=== PATIENT | male | born 1955 | race Caucasian/White ===

== ENCOUNTER 2020-01-09 14:56 | Emergency (ER) | payer OTHER ==
--- NOTE | 2020-01-09 16:36 | EDPHYS ---
Physician Documentation [facility] Name: Maurice Melendez Age: 64 yrs Sex: Male : 1955 Arrival Date: 01/09/2020 Time: 15:01 Bed 24 Private MD: ED Physician Alex Crockett HPI: 01/08 16:35 This 64 yrs old Male presents to ER via Ambulatory with complaints of Lumps pm1 on Skin. 16:35 Lumps/Growths on his right lower rib cage, left lower back, and sternum. Onset: The pm1 symptoms/episode began/occurred many months ago. Severity of symptoms: in the emergency department the symptoms lump to right lower rib cage is larger and causes some pain with lying down on his right side while trying to sleep. The patient has not recently seen a physician. Historical: - Allergies: 15:11 No Known Allergies; iw - Home Meds: 15:11 None [Active]; iw - PMHx: 15:11 None; iw - PSHx: 15:11 None; iw - Immunization history:: Adult Immunizations up to date. - Social history:: Smoking status: Patient reports the use of cigarette tobacco products, smokes one pack cigarettes per day. ROS: 16:35 Constitutional: Negative for fever, chills, and weight loss, Neck: Negative for injury, pm1 pain, and swelling, Cardiovascular: Negative for chest pain, palpitations, and edema, Respiratory: Negative for shortness of breath, cough, wheezing, and pleuritic chest pain, Abdomen/GI: Negative for abdominal pain, nausea, vomiting, diarrhea, and constipation, Back: Negative for injury and pain, MS/Extremity: Negative for injury and deformity. 16:35 Neuro: Negative for headache, weakness, numbness, tingling, and seizure. 16:35 Skin: Positive for lumps to skin on his right lower rib cage, sternum, and left lower back. 16:35 All other systems are negative. Exam: 16:35 Constitutional: This is a well developed, well nourished patient who is awake, alert, pm1 and in no acute distress. Head/Face: Normocephalic, atraumatic. Chest/axilla: Normal chest wall appearance and motion. Nontender with no deformity. No lesions are appreciated. Cardiovascular: Regular rate and rhythm with a normal S1 and S2. No gallops, murmurs, or rubs. Normal PMI, no JVD. No pulse deficits. Respiratory: Lungs have equal breath sounds bilaterally, clear to auscultation and percussion. No rales, rhonchi or wheezes noted. No increased work of breathing, no retractions or nasal flaring. Abdomen/GI: Soft, non-tender, with normal bowel sounds. No distension or tympany. No guarding or rebound. No evidence of tenderness throughout. Back: No spinal tenderness. No costovertebral tenderness. Full range of motion. 16:35 Skin: Appearance: normal except for affected area, soft, fluctuant mass with free mobility from the skin that has slippage sign. Vital Signs: 15:09 BP 163 / 82; Pulse 91; Resp 16; Temp 98.2; Pulse Ox 100% on R/A; Pain 10/10; iw MDM: 16:20 Patient medically screened. pm1 16:35 Data reviewed: vital signs. Data interpreted: Pulse oximetry: on room air is 100 %. pm1 Interpretation: normal. Counseling: I had a detailed discussion with the patient and/or guardian regarding: the historical points, exam findings, and any diagnostic results supporting the discharge/admit diagnosis, the need for outpatient follow up, for definitive care, a general surgeon, to return to the emergency department if symptoms worsen or persist or if there are any questions or concerns that arise at home. Administered Medications: No medications were administered Disposition: 18:22 Co-signature as Attending Physician, Alex Crockett MD I agree with the assessment and carlene plan of care. Disposition: 01/09/20 16:36 Discharged to Home. Impression: Lipomatosis, not elsewhere classified. - Condition is Stable. - Discharge Instructions: Lipoma. - Prescriptions for Diclofenac Sodium 75 mg Oral Tablet, Delayed Release (E.C.) - take 1 tablet by ORAL route 2 times per day As needed; 30 tablet. - Medication Reconciliation Form, Thank You Letter, Antibiotic Education, Prescription Opioid Use form. - Follow up: Emergency Department; When: As needed; Reason: Worsening of condition. Follow up: Private Physician; When: 2 - 3 days; Reason: Recheck today's complaints, Continuance of care, Re-evaluation by your physician. - Problem is new. - Symptoms have improved. Signatures: Martha Tony RN RN aj1 Alex Crockett MD MD cha Williams, Irene, RN Oc Desouza, RISK ENGINEER RISK ENGINEER pm1 Corrections: (The following items were deleted from the chart) 17:00 16:36 01/09/2020 16:36 Discharged to Home. Impression: Lipomatosis, not elsewhere aj1 classified. Condition is Stable. Forms are Medication Reconciliation Form, Thank You Letter, Antibiotic Education, Prescription Opioid Use. Follow up: Emergency Department; When: As needed; Reason: Worsening of condition. Follow up: Private Physician; When: 2 - 3 days; Reason: Recheck today's complaints, Continuance of care, Re-evaluation by your physician. Problem is new. Symptoms have improved. pm1
--- NOTE | 2020-01-09 16:36 | ER ---
Nurse's Notes [facility] Name: Maurice Melendez Age: 64 yrs Sex: Male : 1955 Arrival Date: 01/09/2020 Time: 15:01 Bed 24 Private MD: Diagnosis: Lipomatosis, not elsewhere classified Presentation: 01/08 15:09 Chief complaint: Patient states: pain to right ribcage for a few weeks, also has large iw knot in right chest area since then is very painful. Coronavirus screen: The patient has NOT traveled to [place] in the past 14 days. Proceed with normal triage procedures. Ebola Screen: Patient negative for fever greater than or equal to 101.5 degrees Fahrenheit, and additional compatible Ebola Virus Disease symptoms Patient denies exposure to infectious person. Patient denies travel to an Ebola-affected area in the 21 days before illness onset. No symptoms or risks identified at this time. Initial Sepsis Screen: Does the patient meet any 2 criteria? No. Patient's initial sepsis screen is negative. Does the patient have a suspected source of infection? No. Patient's initial sepsis screen is negative. Risk Assessment: Do you want to hurt yourself or someone else? Patient reports no desire to harm self or others. 15:09 Method Of Arrival: Ambulatory iw 15:09 Acuity: DOUG 4 iw Historical: - Allergies: 15:11 No Known Allergies; iw - Home Meds: 15:11 None [Active]; iw - PMHx: 15:11 None; iw - PSHx: 15:11 None; iw - Immunization history:: Adult Immunizations up to date. - Social history:: Smoking status: Patient reports the use of cigarette tobacco products, smokes one pack cigarettes per day. Screenin:59 Abuse screen: Denies threats or abuse. Denies injuries from another. Nutritional aj1 screening: No deficits noted. Tuberculosis screening: No symptoms or risk factors identified. Assessment: 16:59 General: Appears in no apparent distress. comfortable, Behavior is calm, cooperative, aj1 appropriate for age. Pain: Complains of pain in diaphragm. Neuro: Level of Consciousness is awake, alert, obeys commands, Oriented to person, place, time, situation. Cardiovascular: Patient's skin is warm and dry. Respiratory: Airway is patent Respiratory effort is even, unlabored, Respiratory pattern is regular, symmetrical. GI: Abdomen is flat, non-distended, Bowel sounds present X 4 quads. Abd is soft and non tender X 4 quads. : No signs and/or symptoms were reported regarding the genitourinary system. EENT: No signs and/or symptoms were reported regarding the EENT system. Derm: Skin is pink, warm \T\ dry. normal. Musculoskeletal: Circulation, motion, and sensation intact. Vital Signs: 15:09 BP 163 / 82; Pulse 91; Resp 16; Temp 98.2; Pulse Ox 100% on R/A; Pain 10/10; iw ED Course: 15:01 Patient arrived in ED. as 15:11 Triage completed. iw 15:11 Arm band placed on. iw 16:09 Oc Martin NP is PHCP. pm1 16:09 Alex Crockett MD is Attending Physician. pm1 16:58 Martha Tony, RN is Primary Nurse. aj1 16:59 Patient has correct armband on for positive identification. Bed in low position. Call aj1 light in reach. Side rails up X 1. 16:59 No provider procedures requiring assistance completed. aj1 17:00 Patient did not have IV access during this emergency room visit. aj1 Administered Medications: No medications were administered Outcome: 16:36 Discharge ordered by . pm1 16:59 Discharged to home ambulatory. aj1 16:59 Condition: good 16:59 Discharge instructions given to patient, Instructed on discharge instructions, follow up and referral plans. medication usage, Demonstrated understanding of instructions, follow-up care, medications, Prescriptions given X 1. 17:00 Patient left the ED. aj1 Signatures: Martha Tony, RN RN aj1 Kaitlin Rodríguez Irene, RN RN Oc Martin NP TRUCK RENTAL MANAGER pm1
[2020-01-09 17:42] VITALS: BP 163/82; O2SAT 100
[2020-01-09 17:43] VITALS: TEMP 97.7
== END 2020-01-09 17:00 | disposition home or self-care (01) ==
LOC: ER 14:56
DX: E88.2 Lipomatosis, not elsewhere classified (principal)
CPT/HCPCS: 99282

== ENCOUNTER 2020-01-27 12:04 | Inpatient (IN) | payer OTHER ==
[2020-01-27] MEDS ORDERED: LIDOCAINE 1% MPF 5 ML VIAL ONE (12:41)
--- NOTE | 2020-01-27 13:48 | RAD REPORT ---
EXAM DESCRIPTION: US - Abdomen Exam Limited - 01/27/2020 1:35 pm CLINICAL HISTORY: evaluate abscess Pain and swelling COMPARISON: No comparisons FINDINGS: Large complex heterogenous collection is seen in the interest in the right upper quadrant measuring approximately 9 x 8 cm extending approximately 9 cm deep from the skin surface, likely repr esenting an abscess.
[2020-01-27 14:19] LABS: Absolute Lymphocytes (CBC) 1.5 K/uL (0.7-4.9); Basophils % 0.7 % (0-1.3); Lymphocytes % 15.4 % (15.3-44.8); MPV 7.5 fL (7.6-11.3); RBC Red Blood Cell Count 4.03 M/uL (4.33-5.43)
[2020-01-27 14:23] LABS: Protime INR 1.18
[2020-01-27 14:29] LABS: BUN Blood Urea Nitrogen 23 mg/dL (7-18); Bicarbonate 28 mmol/L (21-32); Glucose Level 97 mg/dL (74-106); Potassium 3.7 mmol/L (3.5-5.1); Sodium Level 138 mmol/L (136-145)
--- NOTE | 2020-01-27 14:47 | ER ---
Nurse's Notes [facility] Name: Maurice Melendez Age: 64 yrs Sex: Male : 1955 Arrival Date: 01/27/2020 Time: 12:12 Bed 18 Private MD: Diagnosis: Cutaneous abscess of abdominal wall Presentation: 01/26 12:12 Chief complaint: EMS states: they were toned for pain from sight side chest mass with wh discharge. Pt denies fever. Pt states abscess has been there for unknown time. Coronavirus screen: The patient has NOT traveled to a country currently being monitored by the [facility] within the last 14 days. Ebola Screen: Patient negative for fever greater than or equal to 101.5 degrees Fahrenheit, and additional compatible Ebola Virus Disease symptoms Patient denies exposure to infectious person. Initial Sepsis Screen: Does the patient meet any 2 criteria? HR > 90 bpm. Does the patient have a suspected source of infection? Yes: Skin breakdown/wound. Risk Assessment: Do you want to hurt yourself or someone else? Patient reports no desire to harm self or others. 12:12 Method Of Arrival: EMS: [facility] 12:12 Acuity: DOUG 4 12:17 Onset of symptoms is unknown. Historical: - Allergies: 12:15 No Known Allergies; - Home Meds: 12:15 Unable to obtain [Active]; - PMHx: 12:15 Alzheimers; - Immunization history:: Adult Immunizations not up to date. - Social history:: Smoking status: Patient reports the use of cigarette tobacco products. Screenin:17 Abuse screen: Denies threats or abuse. Denies injuries from another. Nutritional screening: No deficits noted. Tuberculosis screening: No symptoms or risk factors identified. Fall Risk None identified. Assessment: 12:15 General: Appears in no apparent distress. unkempt, Behavior is calm, cooperative. Pain: Complains of pain in right lateral anterior chest Quality of pain is described as aching, Pain began unknown. Neuro: Level of Consciousness is awake, alert, obeys commands, Oriented to person, place, time. Cardiovascular: Capillary refill < 3 seconds. Respiratory: Airway is patent Respiratory effort is even, unlabored, Respiratory pattern is regular, symmetrical. GI: Abdomen is flat, non-distended. : No signs and/or symptoms were reported regarding the genitourinary system. EENT: No signs and/or symptoms were reported regarding the EENT system. Derm: Abscess located on right lateral anterior chest Reports pain. Musculoskeletal: Circulation, motion, and sensation intact. 13:10 Reassessment: Patient appears in no apparent distress at this time. No changes from previously documented assessment. Patient and/or family updated on plan of care and expected duration. Pain level reassessed. Patient is alert, oriented x 3, equal unlabored respirations, skin warm/dry/pink. 15:15 Reassessment: Patient appears in no apparent distress at this time. No changes from previously documented assessment. Patient and/or family updated on plan of care and expected duration. Pain level reassessed. Patient is alert, oriented x 3, equal unlabored respirations, skin warm/dry/pink. MD at bedside explaining POC need for admit. 16:50 Reassessment: Patient appears in no apparent distress at this time. No changes from previously documented assessment. Patient and/or family updated on plan of care and expected duration. Pain level reassessed. Patient is alert, oriented x 3, equal unlabored respirations, skin warm/dry/pink. Vital Signs: 12:12 BP 124 / 69; Pulse 98; Resp 18; Temp 97; Pulse Ox 98% ; Weight 63.5 kg; Height 5 ft. 10 wh in. (177.80 cm); Pain 4/10; 13:30 BP 135 / 65; Pulse 76; Resp 18; Pulse Ox 99% on R/A; wh 15:00 BP 138 / 58; Pulse 73; Resp 18; Pulse Ox 98% ; wh 16:30 BP 120 / 58; Pulse 67; Resp 18; Pulse Ox 100% ; wh 12:12 Body Mass Index 20.09 (63.50 kg, 177.80 cm) ED Course: 12:12 Patient arrived in ED. 12:12 Sonia Hall FNP-C is [facility]. kb 12:12 Barry Ibrahim MD is Attending Physician. kb 12:14 Triage completed. wh 12:17 Arm band placed on right wrist. 12:18 Patient has correct armband on for positive identification. Placed in gown. Bed in low wh position. Call light in reach. Side rails up X 1. Pulse ox on. NIBP on. 12:28 Laura Moore is Primary Nurse. 13:35 US Abdomen Limited In Process Unspecified. EDMS 14:07 Initial lab(s) drawn, by me, sent to lab. Inserted saline lock: 20 gauge in right dh3 forearm, using aseptic technique. Blood collected. 14:46 Yeni Slaughter MD is Hospitalizing Provider. kb 14:56 Albert Merchant DO is Hospitalizing Provider. kb 16:52 No provider procedures requiring assistance completed. Patient admitted, IV remains in place. Administered Medications: 13:54 CANCELLED (Physician Discretion): Lidocaine (1 %) 1 vials 5 ml Infiltration once; to bedside 14:51 Drug: Clindamycin 600 mg Route: IVPB; Infused Over: 30 mins; Site: right forearm; 16:53 Follow up: Response: No adverse reaction; IV Status: Completed infusion Outcome: 14:47 Decision to Hospitalize by Provider. kb 16:59 Admitted to Med/surg accompanied by tech, via wheelchair, room 204, with chart, Report called to Fanny LE 16:59 Condition: stable 16:59 Instructed on the need for admit. 17:14 Patient left the ED. Signatures: Dispatcher [employer] EDNJ Sonia Hall, [facility] Laura Moore Corrections: (The following items were deleted from the chart) 12:17 12:15 General: Appears in no apparent distress. Behavior is calm, cooperative, appropriate for age, 16:51 15:14 Reassessment: MD at bedside explaining POC need for admit [facility]
--- NOTE | 2020-01-27 14:47 | EDPHYS ---
Physician Documentation [facility] Name: Maurice Melendez Age: 64 yrs Sex: Male : 1955 Arrival Date: 01/27/2020 Time: 12:12 Bed 18 Private MD: ED Physician Barry Ibrahim HPI: 01/26 14:03 This 64 yrs old Male presents to ER via EMS with complaints of Abscess. kb 14:03 The patient presents with an abscess of the right upper quadrant. Description: kb erythematous, fluctuant, swollen. Onset: The symptoms/episode began/occurred "a few months ago". Possible cause(s): unknown. Associated signs and symptoms: Pertinent positives: drainage, erythema, swelling, Pertinent negatives: foreign body sensation, fever, headache, nausea, shortness of breath, vomiting. Modifying factors: the symptoms are alleviated by nothing, the symptoms are aggravated by pressure, touching. Severity of symptoms: At their worst the symptoms were moderate, in the emergency department the symptoms are unchanged. The patient has not experienced similar symptoms in the past. The patient has not recently seen a physician. Historical: - Allergies: 12:15 No Known Allergies; - Home Meds: 12:15 Unable to obtain [Active]; - PMHx: 12:15 Alzheimers; - Immunization history:: Adult Immunizations not up to date. - Social history:: Smoking status: Patient reports the use of cigarette tobacco products. ROS: 13:56 Constitutional: Negative for fever, chills, and weight loss, Cardiovascular: Negative kb for chest pain, palpitations, and edema, Respiratory: Negative for shortness of breath, cough, wheezing, and pleuritic chest pain, Abdomen/GI: Negative for abdominal pain, nausea, vomiting, diarrhea, and constipation, Back: Negative for injury and pain, MS/Extremity: Negative for injury and deformity, Neuro: Negative for headache, weakness, numbness, tingling, and seizure. 13:56 Skin: Positive for abscess, of the right upper quadrant. Exam: 14:01 Constitutional: This is a well developed, well nourished patient who is awake, alert, kb and in no acute distress. Head/Face: Normocephalic, atraumatic. Neck: Trachea midline, no thyromegaly or masses palpated, and no cervical lymphadenopathy. Supple, full range of motion without nuchal rigidity, or vertebral point tenderness. No Meningismus. Chest/axilla: Normal chest wall appearance and motion. Nontender with no deformity. No lesions are appreciated. Cardiovascular: Regular rate and rhythm with a normal S1 and S2. No gallops, murmurs, or rubs. Normal PMI, no JVD. No pulse deficits. Respiratory: Lungs have equal breath sounds bilaterally, clear to auscultation and percussion. No rales, rhonchi or wheezes noted. No increased work of breathing, no retractions or nasal flaring. Abdomen/GI: Soft, non-tender, with normal bowel sounds. No distension or tympany. No guarding or rebound. No evidence of tenderness throughout. Back: No spinal tenderness. No costovertebral tenderness. Full range of motion. MS/ Extremity: Pulses equal, no cyanosis. Neurovascular intact. Full, normal range of motion. Neuro: Awake and alert, GCS 15, oriented to person, place, time, and situation. Cranial nerves II-XII grossly intact. Motor strength 5/5 in all extremities. Sensory grossly intact. Cerebellar exam normal. Normal gait. 14:01 Skin: abscess, that is large, of the right upper quadrant, with fluctuance, that is marked. Vital Signs: 12:12 BP 124 / 69; Pulse 98; Resp 18; Temp 97; Pulse Ox 98% ; Weight 63.5 kg; Height 5 ft. 10 wh in. (177.80 cm); Pain 4/10; 13:30 BP 135 / 65; Pulse 76; Resp 18; Pulse Ox 99% on R/A; wh 15:00 BP 138 / 58; Pulse 73; Resp 18; Pulse Ox 98% ; wh 16:30 BP 120 / 58; Pulse 67; Resp 18; Pulse Ox 100% ; wh 12:12 Body Mass Index 20.09 (63.50 kg, 177.80 cm) MDM: 12:13 Patient medically screened. kb 13:55 Data reviewed: vital signs, nurses notes. Data interpreted: Pulse oximetry: on room air kb is 98 %. Interpretation: normal. Counseling: I had a detailed discussion with the patient and/or guardian regarding: the historical points, exam findings, and any diagnostic results supporting the discharge/admit diagnosis, radiology results, the need for further work-up and treatment in the hospital. 14:44 Physician consultation: Jc Rodríguez MD was contacted at 14:44, regarding consult, patient's condition, and will see patient in inpatient room. 14:44 Physician consultation: Yeni Slaughter MD was contacted at 14:45, regarding admission, to the medical/surgical unit. patient's condition, and will see patient in ED, shortly. 01/26 12:24 Order name: Wound Culture 01/26 13:54 Order name: CBC with Diff; Complete Time: 14:34 01/26 13:05 Order name: US Abdomen Limited; Complete Time: 13:52 01/26 13:54 Order name: Basic Metabolic Panel; Complete Time: 14:31 01/26 13:54 Order name: Protime (+inr); Complete Time: 14:31 01/26 13:54 Order name: Ptt, Activated; Complete Time: 14:31 01/26 12:24 Order name: I\\T\\D Setup; Complete Time: 12:40 01/26 13:54 Order name: IV Start; Complete Time: 13:58 01/26 15:30 Order name: Chest Abd Pelvis Wo Con; Complete Time: 16:06 EDMS Administered Medications: 13:54 CANCELLED (Physician Discretion): Lidocaine (1 %) 1 vials 5 ml Infiltration once; to bedside 14:51 Drug: Clindamycin 600 mg Route: IVPB; Infused Over: 30 mins; Site: right forearm; 16:53 Follow up: Response: No adverse reaction; IV Status: Completed infusion Disposition: 18:34 Co-signature as Attending Physician, Barry Ibrahim MD Signature for administrative ps1 purposes. Did not see or evaluate patient. . Disposition: 01/27/20 14:47 Hospitalization ordered by Albert Merchant for Observation. Preliminary diagnosis is Cutaneous abscess of abdominal wall. - Bed requested for Telemetry/MedSurg (observation). - Status is Observation. - Condition is Stable. - Problem is new. - Symptoms are unchanged. Signatures: Dispatcher [employer] EDMS Sonia Hall, Jeffrey Christie em1 Teresa, Laura Barry Ibrahim MD MD ps1 Corrections: (The following items were deleted from the chart) 13:54 12:24 Lidocaine (1 %) 1 vials 5 ml Infiltration once; to bedside ordered. kb kb 13:54 13:54 Lidocaine (1 %) 1 vials 5 ml Infiltration once; to bedside ordered. kb kb 14:56 14:47 Hospitalization Ordered by Yeni Slaughter MD for Observation. Preliminary diagnosis kb is Cutaneous abscess of abdominal wall. Bed requested for Telemetry/MedSurg (observation). Status is Observation. Condition is Stable. Problem is new. Symptoms are unchanged. kb 15:54 14:56 01/27/2020 14:47 Hospitalization Ordered by Albert Merchant DO for Observation. em1 Preliminary diagnosis is Cutaneous abscess of abdominal wall. Bed requested for Telemetry/MedSurg (observation). Status is Observation. Condition is Stable. Problem is new. Symptoms are unchanged. kb 17:14 15:54 01/27/2020 14:47 Hospitalization Ordered by Albert Merchant DO for Observation. wh Preliminary diagnosis is Cutaneous abscess of abdominal wall. Bed requested for Telemetry/MedSurg (observation). Status is Observation. Condition is Stable. Problem is new. Symptoms are unchanged. em1
[2020-01-27] MEDS ORDERED: CLINDAMYCIN 600MG/D5W 600 MG/50 ML BAG IV ONE (14:50)
--- NOTE | 2020-01-27 16:01 | RAD REPORT ---
EXAM DESCRIPTION: CT - Chest Abd Pelvis Wo Con - 01/27/2020 3:48 pm CLINICAL HISTORY: Chest and abdomen pain. Abscess evaluation COMPARISON: Abdomen Exam Limited dated 01/27/2020 TECHNIQUE: A limited noncontrast study was performed. All CT scans are performed using dose optimization technique as appropriate and may include automated exposure control or mA/KV adjustment according to patient size. FINDINGS: Mild diffuse COPD is present.Atelectasis is identified in the right lung base.No pleural o r pericardial effusion.No intrathoracic adenopathy. Multiloculated thick-walled cystic collection is seen along the right upper quadrant subcutaneous tis sues. The component within the subcutaneous tissues measures 8 x 4 cm. The collection is seen to exte nd between the seventh and eighth intercostal space into the abdominal cavity or the component measur es 9 x 3 cm in the demonstrates mild mass effect on the right lobe of the liver. Noncontrast assessment of the liver, pancreas, adrenal glands and kidneys is within normal limits. Sp antwan is mildly enlarged. No bowel obstruction, free air, or intra-abdominal free fluid. The appendix is not identified as a di screte structure, however, no secondary findings of appendicitis are identified. No pathologic lymp hadenopathy in the abdomen or pelvis. No worrisome osseous finding. IMPRESSION: Multiloculated, thick-walled fluid collection in the right upper quadrant subcutaneous t issues with extension into the abdomen anterior to the right lobe of the liver.This complex, thick wa lled, multilocular collection would not be amenable to percutaneous drainage.
--- NOTE | 2020-01-27 16:06 | P.HP ---
Certification for Inpatient Patient admitted to: Observation With expected LOS: <2 Midnights Patient will require the following post-hospital care: Home Health Services Practitioner: I am a practitioner with admitting privileges, knowledge of patient current condition, hospital course, and medical plan of care. Services: Services provided to patient in accordance with Admission requirements found in Title 42 Section 412.3 of the Code of Federal Regulations Patient History Date of Service: 01/27/20 Primary Care Provider: none Reason for admission: Right upper quadrant superficial abscess History of Present Illness: 64 YO male presents to ED with complaint of abdominal pain and swelling to the right upper quadrant. Pt is unable ot quantify how long he has had this problem but states it could have been there "for a couple months". was concerned and called EMS to have him evaluated. Pt denies any fever, chills, or signs of systemic infection. In ED pt does not appear septic, VSS, WBC WNL, US shows large RUQ abdominal wall abscess, ED discussed case with sx. ED plans surgical debridement, hospitalist called for admission, surgery to consult. When I saw the patient in the ER he appeared stable, non-septic. Appears malnourished with poor hygiene. Concern for in home conditions and adequate social support. Home medications list reviewed: No (Pt states not taking home medications) - Past Medical/Surgical History Diabetic: No Past Medical History: Patient denies medical history Past Surgical History: Patient denies surgical history Psychosocial/ Personal History: Pt is , lives at home with and son. Suspect poor social/home situation. - Social History Smoking Status: Current every day smoker Counseled patient to stop smoking for: less than 10 minutes Review of Systems General: Unremarkable Respiratory: Unremarkable Cardiovascular: Unremarkable Gastrointestinal: Abdominal Pain Genitourinary: Incontinence, Retention Musculoskeletal: Atrophy Integumentary: As per HPI Neurological: As per HPI (Pt states hx of alzheimers ) Lymphatics: Unremarkable Physical Examination - Physical Exam General: Alert, In no apparent distress, Cooperative, Cachectic, Disheveled HEENT: Atraumatic, Normocephalic Neck: JVD not distended, No Thyromegaly Respiratory: Clear to auscultation bilaterally Cardiovascular: No edema, Normal S1 S2 Gastrointestinal: Normal bowel sounds, No ascites, Other (Large abscess with fluctuance, with some erythema and pain to palpation to RUQ. Abscess wsa approximately [id number]) Musculoskeletal: No swelling Integumentary: Tenderness/swelling, Erythema, Warmth, Other (as stated above) Neurological: Normal speech, Normal strength at 5/5 x4 extr, Normal tone Lymphatics: No axilla or inguinal lymphadenopathy (Pt incontinent of urine) - Studies Laboratory Data (last 24 hrs) 01/27/20 14:07: PT 13.9 H, INR 1.18, APTT 27.9 01/27/20 14:07: Sodium 138, Potassium 3.7, BUN 23 H, Creatinine 0.78, Glucose 97 01/27/20 14:07: WBC 9.5, Hgb 11.5 L, Hct 35.0 L, Plt Count 298 Assessment and Plan - Plan Impression Right upper quadrant abdominal wall abscess 9x8cm in size Moderate protein malnutrition Dehydration Suspect poor social situation Plan Right upper quadrant abdominal wall abscess 9x8cm in size: Patient will be admitted and started on antibiotic therapy, medications for pain, NPO after midnight, DVT prophylaxis provided. ER spoke to surgery who will see the patient in the morning. Anticipate surgery tomorrow, possible discharge in the next 24-48 hours pending surgical treatment and clearance. Moderate protein malnutrition: Will provide IV fluids, will consider dietary evaluation, monitor intake. Dehydration: As above Suspect poor social situation: Consult social work to further investigate, pt will likely require home health. Discharge Plan: Home Plan to discharge in: 48 Hours - Advance Directives Does patient have a Living Will: No Does patient have a Durable POA for Healthcare: No - Code Status/Comfort Care Code Status Assessed: Yes (Advanced directives addressed pt is full code) Time Spent Managing Pts Care (In Minutes): 55
[2020-01-27] MEDS ORDERED: ONDANSETRON 4 MG/2 ML VIAL IV PRN (17:51)
[2020-01-27 18:35] LABS: Absolute Lymphocytes (CBC) 1.2 K/uL (0.7-4.9); Basophils % 0.7 % (0-1.3); Hematocrit 36.1 % (39.6-49.0); Lymphocytes % 12.8 % (15.3-44.8); MPV 7.4 fL (7.6-11.3)
[2020-01-27 18:53] LABS: Magnesium 2.5 mg/dL (1.8-2.4); Potassium 3.4 mmol/L (3.5-5.1)
[2020-01-27 18:57] VITALS: BMI 15.3
[2020-01-27] MEDS: NA CHLORIDE 0.9% 1,000 ML IV SCH (19:57)
[2020-01-27] MEDS: ENOXAPARIN 40 MG/0.4 ML SQ SCH (19:58)
[2020-01-27] MEDS: HYDROCODONE/APAP 7.5/325 MG TAB PO PRN (20:01)
[2020-01-27] MEDS ORDERED: POTASSIUM CL SA 10 MEQ TAB PO ONE (20:30)
--- NOTE | 2020-01-27 21:16 | CON ---
Date of Consultation: 01/27/2020 Diagnosis: Abdomen and chest cellulitis and abscess. History Of Present Illness: This is a case of a 64-year-old patient, comes today to the ER with swel ling in the right upper quadrant and lower rib cage area. Patient diagnosed with a cellulitis in gabbie t area. Workup has been done to rule out abscess. He cannot give any information. He does not amari mber. He states it has been there for only few days. More than that he is not giving us much inform ation about the etiology of that. He does not remember even if he had a mass there before. He looks , at least appears malnourished. I agree with the primary doctor. Past Medical History: None. Past Surgical History: None. He does not remember any surgery. Social History: He smokes, he does not remember how many a day. The patient once again advised abou t stopping smoking. Family History: Noncontributory. Review of Systems: 10 points otherwise unremarkable. Physical Examination: General: Patient is awake and alert. HEENT: Pupils are equal, reactive. Neck: Supple. Chest: Clear. Over the lower chest and upper abdomen right lower quadrant, patient has an area of f luctuance. Apparently, the patient has an abscess in that area with some tissue that will need to be debrided. Abdomen: Soft and depressible with no peritonitis. Rectal: Deferred. Genitalia: Deferred. Extremities: Good capillary refill. Laboratory Data: Blood work shows WBC count of 9.2 with hemoglobin of 11.8 and platelets of 290. IN R is 1.18, potassium 3.4, BUN is 22. Abdominal ultrasound shows a large complex in the right upper q uadrant, a density, could represent an abscess. CAT scan interpreted by Dr. Sherman with similar findin gs. When the CAT scan was also reviewed, it shows infection in that area, but there is a mass effect also in the right upper quadrant, in the right upper lobe of the liver. The etiology of that is unk nown. Radiology explained that it cannot not be amenable to percutaneous drainage. Assessment: A 64-year-old patient with an abdominal wall abscess. The radiologist believed it could be going through ribs and then going intra-abdominally. The etiology of that is unknown. It is a m ass effect in that area. So from the surgical standpoint, definitely the abdominal wall abscess have to be drained. We might need to also do a diagnostic laparoscopy, put the camera inside and see if the abscess involved the anterior abdominal wall, why, and at the time if we find an abscess, we migh t have to drain that area and also most likely could drain since the radiologist claimed they cannot do it. The benefits and risk of intraabdominal abscess and abdominal wall abscess fully explained to the patient, with diagnostic laparoscopy, which include but not limited to infection, bleeding, angela ge to adjacent structures, anesthesia complication, nonhealing wound, VA, and even . He also un derstands this may not relieve his symptoms. He might need more than one surgical intervention. He understood. He is eating at this moment. He is comfortable, but still this abscess at least what we see in the abdominal wall is consistent with the infectious mass, I am not sure of the area next to the liver. JOON/JALEN Voice ID: [id number] Report ID: [id number]
[2020-01-28] MEDS: CLINDAMYCIN INJ 600 MG in NA CHLORIDE 0.9% 50 ML IV SCH ×3 (00:33→16:13)
[2020-01-28 03:42] LABS: Urine Appearance CLEAR; Urine Blood NEGATIVE (NEG); Urine Color DK YELLOW; Urine Glucose NEGATIVE (NEG); Urine Protein TRACE (NEG); Urine Specific Gravity >=1.030 (1.005-1.030)
[2020-01-28 03:58] LABS: Urine Bilirubin NEGATIVE (NEG)
[2020-01-28 04:09] LABS: Urine Microscopic Reflex ORDER UMIC
[2020-01-28 04:10] LABS: Urine Bacteria <20 /HPF (NONE SEEN); Urine Culture Reflex Order NOT NEEDED; Urine Mucus 2+ /HPF (NONE SEEN)
[2020-01-28 04:27] LABS: BUN Blood Urea Nitrogen 25 mg/dL (7-18); Bicarbonate 29 mmol/L (21-32); Glucose Level 94 mg/dL (74-106); Potassium 4.2 mmol/L (3.5-5.1); Sodium Level 143 mmol/L (136-145)
[2020-01-28] MEDS: NA CHLORIDE 0.9% 1,000 ML IV SCH ×3 (05:57→20:16)
--- NOTE | 2020-01-28 08:50 | P.PN ---
Subjective Date of Service: 01/28/20 Primary Care Provider: none Chief Complaint: Right upper quadrant superficial abscess Subjective: Doing well Physical Examination - Vital Signs Temperature: 97.8 F Blood Pressure: 100/61 Pulse: 80 Respirations: 20 Pulse Ox (%): 98 - Physical Exam General: Alert, In no apparent distress, Cooperative, Cachectic, Disheveled HEENT: Atraumatic Neck: Supple Respiratory: Clear to auscultation bilaterally, Normal air movement Cardiovascular: Normal pulses, Regular rate/rhythm Gastrointestinal: Normal bowel sounds, Other (Abdominal abscess remains stable. Erythema and fluctuance noted.) Neurological: Normal speech, Normal strength at 5/5 x4 extr, Normal tone, Normal affect - Studies Laboratory Data (last 24 hrs) 01/28/20 04:03: Sodium 143, Potassium 4.2, BUN 25 H, Creatinine 0.76, Glucose 94 01/27/20 18:08: Sodium 140, Potassium 3.4 L, BUN 22 H, Creatinine 0.87, Glucose 104, Magnesium 2.5 H 01/27/20 18:08: WBC 9.2, Hgb 11.8 L, Hct 36.1 L, Plt Count 290 01/27/20 14:07: PT 13.9 H, INR 1.18, APTT 27.9 01/27/20 14:07: Sodium 138, Potassium 3.7, BUN 23 H, Creatinine 0.78, Glucose 97 01/27/20 14:07: WBC 9.5, Hgb 11.5 L, Hct 35.0 L, Plt Count 298 Microbiology Data (last 24 hrs): 01/27/20 18:08 Blood - Blood Anaerobic Blood Culture - Final Medications List Reviewed: Yes Assessment & Plan Discharge Plan: Home Plan to discharge in: 48 Hours Physician Review Additional Text: Impression: Right upper quadrant abdominal wall abscess 9x8cm in size Moderate protein malnutrition Dehydration Suspect poor social situation Dementia Plan Right upper quadrant abdominal wall abscess 9x8cm in size: Case discussed with surgery yesterday. Patient will have surgery today. Await surgery findings and recommendations. Continue IV fluids and nutrition. Anticipate discharge in the next 24-48 hr pending surgical finding and recommendation. Moderate protein malnutrition: Will provide IV fluids, will add oral supplementation. Dehydration: As above Suspect poor social situation: Consult social work to further investigate, pt will likely require home health. Dementia: Patient reports dementia. Patient is appropriate. Follows commands. Will need to get more information from family. Time Spent Managing Pts Care (In Minutes): 55
[2020-01-28] MEDS: ENOXAPARIN 40 MG/0.4 ML SQ SCH (09:00)
[2020-01-28] MEDS: ENSURE HIGH PROTEIN 237 ML CAN PO SCH ×2 (09:34→15:13)
[2020-01-28] MEDS ORDERED: Ringers Lactate 1,000 ML IV ONE (11:06)
[2020-01-28] MEDS ORDERED: ROCURONIUM 50 MG/5 ML VIAL IV ONE (11:36)
[2020-01-28] MEDS ORDERED: propofoL 200 MG/20 ML VIAL IV ONE (11:36)
[2020-01-28] MEDS ORDERED: MIDAZOLAM HCL 2 MG/2 ML INJ ONE (11:36)
[2020-01-28] MEDS ORDERED: FENTANYL CITR 250 MCG/5 ML ONE (11:36)
[2020-01-28] MEDS ORDERED: LIDOCAINE 2% MPF 5 ML VIAL ONE (11:36)
[2020-01-28] MEDS ORDERED: dexAMETHasone 10 MG/ML VIAL ONE (11:36)
[2020-01-28] MEDS ORDERED: GLYCOPYRROLATE 0.2 MG/ML SYR ONE ×2 (12:49→13:14)
[2020-01-28] MEDS ORDERED: KETOROLAC 30 MG/ML INJ ONE (13:13)
[2020-01-28] MEDS ORDERED: NEOSTIGMINE 1 MG/ML -5 ML ONE (13:15)
[2020-01-28] MEDS: HYDROMORPHONE HCL 1 MG/ML INJ ONE ×2 (13:34→13:39)
[2020-01-28] MEDS ORDERED: ONDANSETRON 4 MG/2 ML VIAL ONE (13:37)
--- NOTE | 2020-01-28 14:06 | P.BOP ---
Preoperative diagnosis: intrabdominal abscess and abd wall complex abscess Postoperative diagnosis: same Primary procedure: incision and drainage of intrabdominal and abd wall complex abscess with Secondary procedure: excisional debridemet of necrotic tissue Estimated blood loss: <50cc Specimen: pus Findings: see dictation, Large intrabdominal abscess Anesthesia: General Complications: None Drain(s): Wound drain ([place]) Transferred to: Recovery Room Condition: Good
--- NOTE | 2020-01-28 15:37 | RAD REPORT ---
EXAM DESCRIPTION: RAD - Chest Single View - 01/28/2020 2:51 pm CLINICAL HISTORY: s/p surgery, shortness of breath COMPARISON: CT chest TECHNIQUE: AP portable chest image was obtained 01/28/2020 2:51 pm . FINDINGS: Normal lung volumes without pneumothorax. Patchy lung parenchymal opacification in the rig ht base is most likely atelectasis. The patient is status post drainage of a complex multiloculated c ollection along the lower right chest wall and upper abdomen. Heart size is normal. Vasculature withi n normal limits. No abnormal volume of pleural fluid. No acute bony abnormality seen. No acute aortic findings suspected. IMPRESSION: Lateral right base parenchymal opacification likely atelectasis. This would be expected given the surgical procedure and drainage of the complex multiloculated collection at the thoraco abd ominal junction. No pneumothorax.
[2020-01-28] MEDS: ACETAMINOPHEN 500 MG TAB PO PRN (20:03)
[2020-01-28] MEDS: ENSURE ENLIVE 237 ML CAN PO SCH (20:04)
[2020-01-28] MEDS: ENSURE PUDDING 4 OZ CUP PO SCH (20:06)
[2020-01-29] MEDS: CLINDAMYCIN INJ 600 MG in NA CHLORIDE 0.9% 50 ML IV SCH ×3 (01:29→17:08)
[2020-01-29 05:40] LABS: BUN Blood Urea Nitrogen 25 mg/dL (7-18); Bicarbonate 28 mmol/L (21-32); Glucose Level 122 mg/dL (74-106); Magnesium 2.6 mg/dL (1.8-2.4); Potassium 4.5 mmol/L (3.5-5.1); Prealbumin 5.5 mg/dL (20-40); Sodium Level 145 mmol/L (136-145)
[2020-01-29] MEDS: NA CHLORIDE 0.9% 1,000 ML IV SCH (07:00)
[2020-01-29] MEDS ORDERED: NA CHLORIDE 0.9% 500 ML IV ONE (07:33)
[2020-01-29] MEDS: NACHLORIDE 0.45% 1,000 ML IV SCH ×2 (08:43→16:56)
[2020-01-29] MEDS: ENSURE PUDDING 4 OZ CUP PO SCH ×3 (08:45→21:00)
[2020-01-29] MEDS: ENSURE ENLIVE 237 ML CAN PO SCH ×3 (08:46→20:40)
[2020-01-29] MEDS: ENOXAPARIN 40 MG/0.4 ML SQ SCH (08:46)
[2020-01-29] MEDS: HYDROCODONE/APAP 7.5/325 MG TAB PO PRN ×2 (08:50→20:34)
--- NOTE | 2020-01-29 09:56 | P.PN ---
Subjective Date of Service: 01/29/20 Primary Care Provider: none Chief Complaint: Right upper quadrant superficial abscess Subjective: Improving Physical Examination - Vital Signs Temperature: 97.4 F Blood Pressure: 97/54 Pulse: 76 Respirations: 18 Pulse Ox (%): 98 - Physical Exam General: Alert, In no apparent distress, Oriented x3, Cooperative HEENT: Atraumatic Neck: Supple Respiratory: Clear to auscultation bilaterally, Normal air movement Cardiovascular: Normal pulses, Regular rate/rhythm Gastrointestinal: Other (Bandage to the right abdominal region noted. Mild drainage noted) Integumentary: No tenderness/swelling, No erythema, No warmth, No cyanosis Neurological: Normal speech, Normal strength at 5/5 x4 extr, Normal tone, Normal affect - Studies Microbiology Data (last 24 hrs): 01/27/20 17:40 Wound - Abscess Gram Stain - Final 01/27/20 18:08 Blood - Blood Anaerobic Blood Culture - Final Medications List Reviewed: Yes Assessment & Plan Discharge Plan: Home Plan to discharge in: 48 Hours Physician Review Additional Text: Impression: Right upper quadrant abdominal wall and intraabdominal abscess 9x8cm in size, status post irrigation and debridement Severe protein malnutrition Dehydration Suspect poor social situation Dementia Plan Right upper quadrant abdominal wall and intraabdominal abscess 9x8cm in size, status post irrigation and debridement: Case discussed with surgery yesterday. Patient will have surgery today. Await surgery findings and recommendations. Continue IV fluids and nutrition. Anticipate discharge in the next 24-48 hr pending surgical finding and recommendation. Severe protein malnutrition: Will continue with IV fluids and oral supplementation. Will consult dietary for further recommendation Dehydration: As above Suspect poor social situation: Consult social work to further investigate, patient ambulating. Patient would benefit with home health at discharge. Dementia: Patient reports dementia. Patient is appropriate. Follows commands. Will need to get more information from family. Time Spent Managing Pts Care (In Minutes): 55
[2020-01-29] MEDS: TRAMADOL HCL 50 MG TAB PO PRN (16:05)
--- NOTE | 2020-01-29 22:44 | DS ---
Diagnosis: Large complex abscess involving the abdominal wall part of the thoracic wall and intraabd ominal area. Hospital Course: Patient is improving. He has extensive the debridement yesterday. He has drainage of a complex abscess on the abdominal wall, chest wall and intraabdominal. Patient is doing better. He is feeling better. No short of breath. No chest pain. Physical Examination: Chest: Clear. Chest and abdomen: Abdominal wall packing was changed today. I removed the Goodell. A dressings we re packed once again, wet-to-dry. Abdomen is soft and depressible. No peritonitis. No tenderness. Extremities: Good capillary refill. Laboratory Data: Cultures still pending. Blood work at 9.2. Plan: Advance diet. Continue dressing changes. Wait for the cultures. JOON/JALEN Voice ID: [id number] Report ID: [id number]
[2020-01-30] MEDS: CLINDAMYCIN INJ 600 MG in NA CHLORIDE 0.9% 50 ML IV SCH ×3 (00:12→16:59)
[2020-01-30] MEDS: NACHLORIDE 0.45% 1,000 ML IV SCH ×2 (04:16→14:00)
[2020-01-30] MEDS: ENSURE ENLIVE 237 ML CAN PO SCH ×2 (08:25→21:00)
[2020-01-30] MEDS: ENSURE PUDDING 4 OZ CUP PO SCH ×2 (08:25→21:00)
[2020-01-30] MEDS: ENOXAPARIN 40 MG/0.4 ML SQ SCH (08:26)
[2020-01-30] MEDS: TRAMADOL HCL 50 MG TAB PO PRN (08:32)
--- NOTE | 2020-01-30 10:25 | P.PN ---
Subjective Date of Service: 01/30/20 Primary Care Provider: none Chief Complaint: Right upper quadrant superficial abscess Subjective: Improving, Doing well Physical Examination - Vital Signs Temperature: 97.6 F Blood Pressure: 133/63 Pulse: 73 Respirations: 14 Pulse Ox (%): 98 - Physical Exam General: Alert, In no apparent distress, Demented HEENT: Atraumatic Neck: Supple Respiratory: Clear to auscultation bilaterally, Normal air movement Cardiovascular: Normal pulses, Regular rate/rhythm Gastrointestinal: Normal bowel sounds, Soft and benign, Non-distended, Other ( Bandaged in place.) Neurological: Normal speech, Normal strength at 5/5 x4 extr, Normal tone, Dementia - Studies Microbiology Data (last 24 hrs): 01/27/20 17:40 Wound - Abscess Gram Stain - Final Medications List Reviewed: Yes Assessment & Plan Discharge Plan: Other (intermediate facility) Plan to discharge in: 48 Hours Physician Review Additional Text: Impression: Right upper quadrant abdominal wall and intraabdominal abscess 9x8cm in size, status post irrigation and debridement Severe protein malnutrition Dehydration Suspect poor social situation Dementia Plan Right upper quadrant abdominal wall and intraabdominal abscess 9x8cm in size, status post irrigation and debridement: Case discussed with surgery yesterday. Will recheck CT scan of Chest/AB tomorrow to reassess. He may require further debridement. Await recommendations. Continue with IV fluids. Spoke to concerning his care. She mentioned patient is not eating at home. Discussion about skilled placement was addressed. She agrees with skilled placement. Will consult social work specialist to help arrange this. Will have physical therapy assess ambulation and evaluate for skilled placement. I will turn the service over to the hospitalist team tomorrow. I will go the plan of care with him. Anticipate discharge in the next 48-72 hr. Severe protein malnutrition: Will continue with IV fluids and oral supplementation. Will discontinue IV fluids if taking good oral intake. Will consult dietary for further recommendation Dehydration: As above Suspect poor social situation: Continue as above. Will pursue skilled placement. Dementia: Patient reports dementia. Patient is appropriate. Follows commands. Spoke with . Patient agrees with plan of care. Time Spent Managing Pts Care (In Minutes): 55
[2020-01-30] MEDS: HYDROCODONE/APAP 7.5/325 MG TAB PO PRN ×2 (14:45→23:33)
--- NOTE | 2020-01-30 19:40 | PN ---
Diagnosis: Abdominal wall/thoracic wall intraabdominal abscess, status post drainage. Subjective: This is a case of a 64-year-old patient with a very complex abscess involving the abdomi nal wall, chest, abdomen, intraabdominal too. Patient had debridement of the area. Lot of pus came from that region. Patient is improving. Objective: Chest: Clear. Abdomen: Soft and depressible. No peritonitis. The area of the wound is intact with no pus. There is a hole between the ribs that goes into the area just above the abdomen and away from the chest. Lungs: No pneumothorax. No crepitus. Bilateral breath sounds. Laboratory Data: Culture is still pending. Plan: We will repeat the CAT scan tomorrow. We are going to evaluate the intraabdominal abscess, ma adis sure that most of it is at least removed and to make sure it is not getting bigger in an area we cannot see. There is a cavity just outside the chest, just on top of the abdomen. Between the ribs , there is a cavity in that area, that we also drained, that we want to evaluate since we cannot do i t clinically. X-ray also is not going to help neither. The previous x-ray shows no pneumothorax. A bdomen is benign. So, tomorrow, we are going to repeat the CAT scan once again, follow up the cultur es, continue on antibiotics. Patient is tolerating diet. JOON/JALEN Voice ID: [id number] Report ID: [id number]
[2020-01-31] MEDS: CLINDAMYCIN INJ 600 MG in NA CHLORIDE 0.9% 50 ML IV SCH ×3 (00:04→16:58)
[2020-01-31] MEDS: ENOXAPARIN 40 MG/0.4 ML SQ SCH (08:33)
[2020-01-31] MEDS: ENSURE ENLIVE 237 ML CAN PO SCH ×3 (08:39→21:00)
[2020-01-31] MEDS: ENSURE PUDDING 4 OZ CUP PO SCH (08:39)
[2020-01-31] MEDS: Levofloxacin 750mg IV 750 MG/150 ML BAG IV SCH (11:29)
--- NOTE | 2020-01-31 12:07 | P.PN ---
Subjective Date of Service: 01/31/20 Primary Care Provider: none Chief Complaint: Right upper quadrant superficial abscess Patient currently has no complain except pain in the area of incision on the abdominal wall. He has no fever. Physical Examination - Vital Signs Temperature: 98.7 F Blood Pressure: 145/83 Pulse: 80 Respirations: 16 Pulse Ox (%): 97 - Physical Exam General: Alert, In no apparent distress, Oriented x3 HEENT: Mucous membr. moist/pink, Sclerae nonicteric Neck: Supple, JVD not distended Respiratory: Clear to auscultation bilaterally, Normal air movement Cardiovascular: No edema, Regular rate/rhythm, Normal S1 S2 Gastrointestinal: Normal bowel sounds, Soft and benign, Non-distended, No tenderness Musculoskeletal: No swelling, No erythema Integumentary: Other (Dressed incision in the right upper quadrant of abdomen.) Neurological: Normal strength at 5/5 x4 extr, Normal affect - Studies Microbiology Data (last 24 hrs): 01/27/20 17:40 Wound - Abscess Gram Stain - Final 01/27/20 17:40 Wound - Abscess Culture & Sensitivity - Final Ps. Fluor/[place] Medications List Reviewed: Yes Assessment And Plan - Current Problems (Diagnosis) (1) Abdominal wall abscess Current Visit: Yes Status: Acute (2) Severe protein-calorie malnutrition Current Visit: Yes Status: Acute (3) Dementia Current Visit: Yes Status: Acute - Plan Repeat CT chest and abdomen requested to follow the abdominal wall abscess and possible chest wall abscess. General surgery to follow. Nutritional supplementation. Changed clindamycin to Levaquin given Pseudomonas isolated in the wound culture. Social service assisting with disposition. Patient may need rehab and possibly long-term care placement.
--- NOTE | 2020-01-31 12:52 | RAD REPORT ---
EXAM DESCRIPTION: CT - Chest Abdomen W Con - 01/31/2020 12:32 pm CLINICAL HISTORY: Abdominal wall and chest wall abscess s/p I D COMPARISON: Chest Abd Pelvis Wo Con dated 01/27/2020 TECHNIQUE: During dynamic enhancement using 100 milliliters nonionic IV contrast, axial 5 millimeter thick images of the chest, abdomen and pelvis were obtained. Biphasic technique was utilized through the abdomen. No oral contrast administered. All CT scans are performed using dose optimization technique as appropriate and may include automated exposure control or mA/KV adjustment according to patient size. FINDINGS: Minimal scarring and atelectasis changes are present in the left lung field. A small left pleural effusion has developed. No left-sided pneumothorax. No pericardial thickening or effusion. Me diastinal and hilar regions show no mass or lymphadenopathy. Heart size is normal. Small pleural effusion is present posterior gutter on the right with atelectasis. Lateral right base parenchymal stranding changes match the January 26 study. Prior study showed a complex loculated fluid collection both superficial and deep to the lower chest wall at the diaphragm. Patient under went anni gical drainage. Drain tube is no longer identifiable. There is an open excisional site that extends f rom the skin surface deep to the thoracic cage. There is no pneumothorax. There is a small amount of fluid remaining along the right lateral margin of the liver. This flattens and causes concavity to th e liver capsule. The spleen and pancreas show no suspicious findings. No new biliary tree finding. No new gallbladder finding. Symmetric renal function is seen with no hydronephrosis, mass or other significant finding. No adren al abnormalities. Stomach is filled with fluid. No gastric outlet obstruction, mass or wall thickening. There is a larg e amount of stool filling the visualized portions of the colon. No dilated small bowel loops. Within the abdominal portion of the peritoneal and retro spot peritoneal spaces no suspicious mass or fluid collection. No intraperitoneal free air. No acute bone or vascular finding. IMPRESSION: Since prior imaging there has been surgical drainage of a complex loculated fluid collec tion along the right lateral lower thorax and upper abdominal wall at the diaphragm level. Large open surgical site is present. No drain tube is seen. Approximately 6 x 2.5 centimeter collection remains along the right lateral margin of the liver. There is no pneumothorax present. Patient has developed a small right pleural effusion. Small left pleural effusion. No suspicious intraperitoneal process. CT abdomen and pelvis imaging shows no significant or suspicious finding.
[2020-01-31] MEDS: TRAMADOL HCL 50 MG TAB PO PRN (16:21)
--- NOTE | 2020-01-31 20:14 | PN ---
Date of Progress Note: 01/31/2020 Diagnosis: Chest wall, abdominal wall, intraabdominal abscess. Subjective: Patient is doing better. He is tolerating diet. No fever. No shortness of breath. No chest pain. No abdominal pain. Physical Examination: Chest: Clear. Abdomen: Soft and depressible. No guarding, rebound. Intact surgical site. No pus seen. Imaging: CAT scan was reviewed today. Lot of improvement from the outer areas intra-abdominally sti ll have some areas just top of the liver that although improved there is an area that is multiloculat ed that is not draining. Plan: I explained to the patient, he may need another surgical intervention. We discussed that with him even with the first surgery may need more than cleaning this area. This time may be once again in the form a diagnostic laparoscopy and possible laparoscopic an intraabdominal abscess drainage. T his I explained to him may violate the capsule in that area, but we trying to go from the outside to that specific point we could not go. Radiology stated you could not go percutaneously and if the abs cess does not improve then either antibiotics or surgical intervention and because of the size is mor e inclined to more drip cleaning of this area as discussed before. That is not ready yet for it, he just wants some time. We discussed that with the family tomorrow and then if he agree and we have no other alternative than will go there and clean the rest of the area that has not improved yet. JOON/JALEN Voice ID: [id number] Report ID: [id number]
[2020-01-31] MEDS: HYDROCODONE/APAP 7.5/325 MG TAB PO PRN (22:26)
[2020-02-01] MEDS: CLINDAMYCIN INJ 600 MG in NA CHLORIDE 0.9% 50 ML IV SCH ×2 (00:43→10:08)
[2020-02-01 05:53] LABS: ALT/SGPT 15 U/L (12-78); AST/SGOT 15 U/L (15-37); Alkaline Phosphatase 73 U/L (45-117); BUN Blood Urea Nitrogen 10 mg/dL (7-18); Bicarbonate 30 mmol/L (21-32); Bilirubin Total 0.3 mg/dL (0.2-1.0); Glucose Level 92 mg/dL (74-106); Potassium 4.1 mmol/L (3.5-5.1); Protein, Total 6.2 g/dL (6.4-8.2); Sodium Level 138 mmol/L (136-145)
[2020-02-01] MEDS: ENOXAPARIN 40 MG/0.4 ML SQ SCH (08:01)
[2020-02-01] MEDS: Levofloxacin 750mg IV 750 MG/150 ML BAG IV SCH (08:01)
[2020-02-01] MEDS: ENSURE ENLIVE 237 ML CAN PO SCH ×3 (08:01→20:46)
[2020-02-01] MEDS ORDERED: LORazepam 2 MG/ML VIAL IV ONE (09:26)
--- NOTE | 2020-02-01 12:12 | P.PN ---
Subjective Date of Service: 02/01/20 Primary Care Provider: none Chief Complaint: Right upper quadrant superficial abscess Patient noted to be very anxious. He attributes the anxiety to the thought of the needing another surgery. CT abdomen and chest report remnants fluid collection along the right lateral margin of the liver. Physical Examination - Vital Signs Temperature: 97.8 F Blood Pressure: 135/63 Pulse: 70 Respirations: 18 Pulse Ox (%): 99 - Physical Exam General: In no apparent distress, Other (Anxious) Neck: Supple, JVD not distended Respiratory: Clear to auscultation bilaterally, Normal air movement Cardiovascular: No edema, Regular rate/rhythm, Normal S1 S2 Gastrointestinal: Normal bowel sounds, Soft and benign, Non-distended Musculoskeletal: No swelling, No erythema Integumentary: No rashes Neurological: Normal strength at 5/5 x4 extr, Other (Anxious) - Studies Microbiology Data (last 24 hrs): 01/27/20 17:40 Wound - Abscess Gram Stain - Final 01/27/20 17:40 Wound - Abscess Culture & Sensitivity - Final Ps. Fluor/Putida Medications List Reviewed: Yes Assessment And Plan - Current Problems (Diagnosis) (1) Abdominal wall abscess Current Visit: Yes Status: Acute (2) Severe protein-calorie malnutrition Current Visit: Yes Status: Acute (3) Dementia Current Visit: Yes Status: Acute - Plan General surgery recommend laparoscopy for drainage of remnant abscess. Continue antibiotics. Patient states he would like to discuss surgery recommendation with family before proceeding with it. Ativan p.r.n. for anxiety Nutritional supplementation. Social service assisting with disposition. Patient may need rehab and possibly long-term care placement.
[2020-02-02] MEDS: TRAMADOL HCL 50 MG TAB PO PRN (04:11)
[2020-02-02 05:47] LABS: Absolute Lymphocytes (CBC) 1.7 K/uL (0.7-4.9); Basophils % 0.8 % (0-1.3); Hematocrit 28.7 % (39.6-49.0); Lymphocytes % 27.3 % (15.3-44.8); MPV 7.7 fL (7.6-11.3); RBC Red Blood Cell Count 3.33 M/uL (4.33-5.43)
[2020-02-02 05:57] LABS: BUN Blood Urea Nitrogen 14 mg/dL (7-18); Bicarbonate 31 mmol/L (21-32); Glucose Level 99 mg/dL (74-106); Potassium 4.1 mmol/L (3.5-5.1); Sodium Level 138 mmol/L (136-145)
[2020-02-02] MEDS: ENOXAPARIN 40 MG/0.4 ML SQ SCH (08:23)
[2020-02-02] MEDS: Levofloxacin 750mg IV 750 MG/150 ML BAG IV SCH (08:23)
[2020-02-02] MEDS: ENSURE ENLIVE 237 ML CAN PO SCH ×4 (08:24→20:16)
--- NOTE | 2020-02-02 12:02 | P.PN ---
Subjective Date of Service: 02/02/20 Primary Care Provider: none Chief Complaint: Right upper quadrant superficial abscess Patient has no complain today. He was able to ambulate to do and from bathroom without assistance, though noted his gait was wobbly. Dr. Rodríguez is planning another debridement for intra-abdominal abscess. Physical Examination - Vital Signs Temperature: 98.2 F Blood Pressure: 119/65 Pulse: 75 Respirations: 18 Pulse Ox (%): 99 - Physical Exam General: Alert, In no apparent distress, Cachectic HEENT: Mucous membr. moist/pink Neck: Supple Respiratory: Clear to auscultation bilaterally, Normal air movement Cardiovascular: No edema, Regular rate/rhythm, Normal S1 S2 Gastrointestinal: Normal bowel sounds, Soft and benign, Non-distended, No tenderness Musculoskeletal: No swelling, No erythema Neurological: Normal strength at 5/5 x4 extr - Studies Microbiology Data (last 24 hrs): 01/27/20 18:10 Blood - Blood Aerobic Blood Culture - Final No growth in 5 days. 01/27/20 18:10 Blood - Blood Anaerobic Blood Culture - Final No growth in 5 days. 01/27/20 18:08 Blood - Blood Aerobic Blood Culture - Final No growth in 5 days. 01/27/20 18:08 Blood - Blood Anaerobic Blood Culture - Final Medications List Reviewed: Yes Assessment And Plan - Current Problems (Diagnosis) (1) Abdominal wall abscess Current Visit: Yes Status: Acute (2) Severe protein-calorie malnutrition Current Visit: Yes Status: Acute (3) Dementia Current Visit: Yes Status: Acute - Plan Patient is planned for laparoscopy for drainage of remnant abscess. Continue antibiotics. Ativan p.r.n. for anxiety Nutritional supplementation. Social service assisting with disposition. Patient may need rehab and possibly long-term care placement.
[2020-02-02] MEDS: ACETAMINOPHEN 500 MG TAB PO PRN (20:11)
--- NOTE | 2020-02-02 22:27 | PN ---
Subjective: Patient is doing better. He is communicative. He has no pain in the area of concern. No short of breath. No chest pain. No abdominal pain. He is tolerating diet, passing flatus, and h aving bowel movement. Objective: Chest: Bilateral breath sounds. Abdomen: Soft and depressible. Incisions are intact. Excellent granulation tissue. Laboratory Data: Blood work shows WBC count of 6.1 with hemoglobin of 9.5. The CAT scan that we did about 48 hours ago shows that most of the abscess is resolved, but has still something especially in the area near the liver area. Plan: I have fully discussed with the patient options. There is an option of diagnostic laparoscopy or laparotomy, trying to see the area next to the liver and trying to drain that area. That being do ne, that may contaminate the abdominal cavity. Apparently, there is a wall not letting that free flu id coming out. It may improve on oral antibiotics, it is hard for me to tell at this moment. All th e drainage that we did, surely improved his condition. No more foul smelling. No more pus coming fr om the area, but there is an area there that I am not sure if it will resolve on its own on antibioti cs or not. Radiologist already determined they are not going to do percutaneous drainage. I have ful ly explained to him the pros and cons. He can continue his antibiotics and then we will repeat the C AT scan in about a week from now and see if the abscess is resolved. Obviously, he does not want to go for surgical intervention at this moment now. We understand, specially when he is afebrile, mary ellen ating diet, have no pain. I have talked to the primary doctor involved in the case. The patient wan ts to go home. If he is not going to let us do the surgery and he is on Levaquin based on the cultur e that we checked, he is sensitive to that, and he is tolerating diet, then we might have a case to c hange his antibiotics by mouth, wait for the next few days, how this develops and then proceed accord ingly. The downside of that is that the abscess may get bigger and he may need emergent surgery and he understands that. He is making the decision and we are going to check with him tomorrow morning a gain, and we are trying to look for alternatives, which in that case, may be even going to a half-way and continue the IV antibiotics versus p.o. We discussed that with the staff to look for option s on him. JOON/JALEN Voice ID: [id number] Report ID: [id number]
[2020-02-03 07:23] LABS: Absolute Lymphocytes (CBC) 1.9 K/uL (0.7-4.9); Basophils % 1.2 % (0-1.3); MPV 8.1 fL (7.6-11.3); RBC Red Blood Cell Count 3.48 M/uL (4.33-5.43)
[2020-02-03 07:34] LABS: BUN Blood Urea Nitrogen 17 mg/dL (7-18); Bicarbonate 26 mmol/L (21-32); Glucose Level 88 mg/dL (74-106); Potassium 4.4 mmol/L (3.5-5.1); Sodium Level 138 mmol/L (136-145)
[2020-02-03] MEDS: ENOXAPARIN 40 MG/0.4 ML SQ SCH (09:51)
[2020-02-03] MEDS: ENSURE ENLIVE 237 ML CAN PO SCH ×3 (09:52→21:11)
[2020-02-03] MEDS: Levofloxacin 750mg IV 750 MG/150 ML BAG IV SCH (09:52)
[2020-02-03] MEDS: ACETAMINOPHEN 500 MG TAB PO PRN (11:33)
[2020-02-03 12:56] VITALS: O2SAT 99
--- NOTE | 2020-02-03 13:34 | P.PN ---
Subjective Date of Service: 02/03/20 Primary Care Provider: none Chief Complaint: Right upper quadrant superficial abscess Patient has no complain today except pain in the debrided wound. Case reviewed with Dr. Rodríguez. He plans a trial of oral Levaquin and repeat CT chest and abdomen within 1 week to assess for the fluid collection along the lateral margin of the liver response to antibiotic therapy before considering laparascopy and drainage. I reviewed the case with Radiology-Dr. Barrios. per Dr. Barrios, the fluid collection is not easily accessible, the needle may have to go through the diaphragm and/or pleural space and therefore high risk for pneumothorax. I reached out to Intervention radiologist at [facility], they do not have access to the images to review and advise. Physical Examination - Vital Signs Temperature: 98.1 F Blood Pressure: 135/64 Pulse: 86 Respirations: 20 Pulse Ox (%): 99 - Physical Exam General: Alert, In no apparent distress, Oriented x3 HEENT: Mucous membr. moist/pink Neck: Supple Respiratory: Clear to auscultation bilaterally, Normal air movement Cardiovascular: No edema, Regular rate/rhythm, Normal S1 S2 Gastrointestinal: Normal bowel sounds, Soft and benign, Non-distended Integumentary: Other (Dressed debrided wound in the right upper quadrant of abdomen, dressings is not soaked.) Neurological: Normal strength at 5/5 x4 extr - Studies Medications List Reviewed: Yes Assessment And Plan - Current Problems (Diagnosis) (1) Abdominal wall abscess Current Visit: Yes Status: Acute (2) Severe protein-calorie malnutrition Current Visit: Yes Status: Acute (3) Dementia Current Visit: Yes Status: Acute - Plan Conservative management with oral Levaquin per Dr. Rodríguez. He will follow with the patient within 1 week with a repeat CT to reassess fluid collection on the lateral margin of the liver. There is a concern for patient being able to take good care of himself, proper nutrition and wound-care. SNF was recommended but patient declines to go to SNF. Continue antibiotics. Will obtain Infectious disease input. Ativan p.r.n. for anxiety Nutritional supplementation.
[2020-02-03] MEDS: METRONIDAZOLE 500mg IVPB 500 MG/100 ML BAG IV SCH (17:33)
[2020-02-03] MEDS ORDERED: ACETIC ACID 0.25% IRRIG IRR ONE (20:02)
[2020-02-03] MEDS ORDERED: TEMAZEPAM 15 MG CAP PO PRN (22:03)
[2020-02-04] MEDS: METRONIDAZOLE 500mg IVPB 500 MG/100 ML BAG IV SCH ×2 (00:22→08:34)
[2020-02-04] MEDS: ACETAMINOPHEN 500 MG TAB PO PRN ×2 (00:36→11:32)
[2020-02-04] MEDS: ENOXAPARIN 40 MG/0.4 ML SQ SCH (08:35)
[2020-02-04] MEDS: ENSURE ENLIVE 237 ML CAN PO SCH ×2 (08:36→13:37)
[2020-02-04 08:47] VITALS: TEMP 98.1
[2020-02-04] MEDS: Levofloxacin 750mg IV 750 MG/150 ML BAG IV SCH (09:45)
--- NOTE | 2020-02-04 11:51 | CON ---
History Of Present Illness: Patient is a 64-year-old male coming in with abdominal pain and swelling to the right upper quadrant. I was consulted status post I and D of the abscess. Patient has been having this problem for last couple of months. His abdominal CT on admission showed that the patient has a multiloculated thick-walled fluid collection in the right upper quadrant subcutaneous tissue w ith extension into the abdomen anterior to the right lobe of the liver. His CT abdomen status post I and D done on shows surgical drainage of a complex loculated fluid collection along the right l ateral lower thorax and upper abdominal wall at the diaphragm level. Large open surgical site is pre sent. No drain tube was noted at that time. A collection of 6 x 2.5 cm at the right lateral margin of the liver noted. Past Medical History: Includes no diabetes, no other medical problems. Social History: Tobacco positive. Alcohol negative. Family History: Noncontributory. Medications: Levaquin and Flagyl, and acetic acid to the wound site. Allergies: NO KNOWN DRUG ALLERGIES. Review of Systems: A 10-point review was performed. Physical Examination: General: This is a 64-year-old male, lying in bed, not in any acute distress. Vital Signs: Temperature 98, pulse 67, respirations 16, blood pressure 104/51. HEENT: Unremarkable. Neck: Supple. Lungs: Clear to auscultation. Heart: S1, S2. Regular. Abdomen: Soft. Bowel sounds present. Extremities: No edema. Muscle wasting noted. Skin: Right-sided abdominal wound was 8 x 5 with a small hole also noted between the rib cage. Laboratory Data: Shows WBC is 6.4, hemoglobin 10, platelets are 260. Chemistry shows sodium 138, po tassium 4.4, chloride 105, bicarb 26, BUN 17, creatinine 0.7, glucose 88. Micro data shows Pseudomon as putida. Assessment And Plan: Right chest abscess status post I and D in a 64-year-old male with no previous history except tobacco usage. We will recommend to continue Levaquin and Flagyl at this time and con tinue acetic acid with Hydrofera Blue dressing on daily basis. Continue wound care and supportive ca re. Repeat CT scan in 2 weeks. Follow the patient closely. Thank you for consult. NF/MODL Voice ID: [id number] Report ID: [id number]
--- NOTE | 2020-02-04 11:55 | P.PN ---
Subjective Date of Service: 02/04/20 Primary Care Provider: none Chief Complaint: Right upper quadrant superficial abscess Patient has no complain today. He appeared confused and deemed not capable of making medical decisions at this time. Physical Examination - Vital Signs Temperature: 98.1 F Blood Pressure: 104/51 Pulse: 67 Respirations: 16 Pulse Ox (%): 99 - Physical Exam General: In no apparent distress, Confused HEENT: Mucous membr. moist/pink Respiratory: Clear to auscultation bilaterally, Normal air movement Cardiovascular: No edema, Regular rate/rhythm, Normal S1 S2 Gastrointestinal: Normal bowel sounds, Soft and benign, No tenderness Musculoskeletal: No swelling, No erythema Integumentary: Other (Large debrided packed wound-RUQ/right flank. Wound looks clean.) Neurological: Other (Non-focal) - Studies Medications List Reviewed: Yes Assessment And Plan - Current Problems (Diagnosis) (1) Abdominal wall abscess Current Visit: Yes Status: Acute (2) Severe protein-calorie malnutrition Current Visit: Yes Status: Acute (3) Dementia Current Visit: Yes Status: Acute - Plan Conservative management with oral Levaquin per Dr. Rodríguez. He will follow with the patient within 1 week with a repeat CT to reassess fluid collection on the lateral margin of the liver. There is a concern for patient being able to take good care of himself, proper nutrition and wound-care. Case discussed with infectious disease-Dr. Vela. Patient may do well on oral antibiotics. Will change antibiotics to oral Flagyl and Levaquin. Patient will need aggressive wound care. Disposition to SNF Nutritional supplementation.
--- NOTE | 2020-02-04 13:53 | P.DS ---
Admission Date: 01/28/20 Discharge Date: 02/04/20 Primary Care Provider: none Disposition: TRANSFER TO HALFWAY Reason for Admission: Right upper quadrant superficial abscess Consultations: General surgery Procedures: Laparoscopic drainage of complex intra-abdominal abscess, drainage, excision and debridement or abdominal wall abscess. - Problems (1) Abdominal wall abscess Current Visit: Yes Status: Acute (2) Severe protein-calorie malnutrition Current Visit: Yes Status: Acute (3) Dementia Current Visit: Yes Status: Acute (4) Intra-abdominal abscess Current Visit: Yes Status: Acute Brief History of Present Illness: 64-year-old gentleman was brought to the ED due to large swelling on the right upper quadrant wall of the of the abdomen. Ultrasound in the ED revealed large abdominal wall abscess. CT abdomen, pelvis and chest demonstrated extension of the abscess into the intra-abdominal cavity. General surgery was consulted and patient admitted for further management. Hospital Course: Patient was admitted to the medical floor started on aggressive antibiotic therapy. He was seen by Dr. Rodríguez, patient underwent laparoscopy and drainage of complex intra-abdominal abscess, drainage of right upper quadrant abdominal wall abscess and debridement. Drained fluid grew Pseudomonas sensitive to Levaquin. Antibiotics was changed Levaquin, Flagyl was also added to provide anaerobic coverage. Patient had a remnant layer of fluid collection at the right lateral edge of the liver on repeat CT. Radiology deemed percutaneous drainage of the fluid as high risk, given that the needle has to go through multiple structures in order to access the fluid and there was also risk for pneumothorax. Besides radiology felt the fluid may be insufficient to benefit from drainage and that the risk of drainage outweighs benefit. Patient was seen by infectious disease who recommended to continue Levaquin and Flagyl. Infectious disease also recommended wound care, followup CT within 2 weeks. There is a concern patient will not be able to care for himself well at home, less his complex wound care. SNF was recommended. Patient has been accepted to SNF. He is discharged with oral Levaquin and Flagyl. Follow up with wound Care Clinic within 1-2 weeks is recommended. Follow up with Dr. Rodríguez within 1-2 weeks also recommended. Vital Signs/Physical Exam: Temp Pulse Resp BP Pulse Ox 98.1 F 67 16 104/51 L 99 02/04/20 11:55 02/04/20 11:55 02/04/20 11:55 02/04/20 11:55 02/04/20 11:55 General: Cachectic, Confused HEENT: Mucous membr. moist/pink Neck: Supple Respiratory: Clear to auscultation bilaterally, Normal air movement Cardiovascular: No edema, Regular rate/rhythm, Normal S1 S2 Gastrointestinal: Normal bowel sounds, Soft and benign, Non-distended, No tenderness Musculoskeletal: No swelling, No erythema Integumentary: Other (Large debrided wound-RUQ, packed and dressed.) Neurological: Other (Nonfocal.) Laboratory Data at Discharge: WBC 6.4 K/uL (4.3-10.9) 02/03/20 05:36 Hgb 10.0 g/dL (13.6-17.9) L 02/03/20 05:36 Hct 30.0 % (39.6-49.0) L 02/03/20 05:36 Plt Count 260 K/uL (152-406) 02/03/20 05:36 PT 13.9 SECONDS (9.5-12.5) H 01/27/20 14:07 INR 1.18 01/27/20 14:07 APTT 27.9 SECONDS (24.3-36.9) 01/27/20 14:07 Sodium 138 mmol/L (136-145) 02/03/20 05:36 Potassium 4.4 mmol/L (3.5-5.1) 02/03/20 05:36 BUN 17 mg/dL (7-18) 02/03/20 05:36 Creatinine 0.71 mg/dL (0.55-1.3) 02/03/20 05:36 Glucose 88 mg/dL (74-106) 02/03/20 05:36 Magnesium 2.3 mg/dL (1.8-2.4) 02/01/20 05:27 Total Bilirubin 0.3 mg/dL (0.2-1.0) 02/01/20 05:27 AST 15 U/L (15-37) 02/01/20 05:27 ALT 15 U/L (12-78) 02/01/20 05:27 Alkaline Phosphatase 73 U/L (45-117) 02/01/20 05:27 Home Medications: Acetic Acid 0.25% [Acetic Acid 0.25%*] 10 ml IR DAILY #1 bottle 02/04/20 Ensure Enlive 237 ml PO TID can 02/04/20 Tramadol HCl [Ultram] 50 mg PO Q6H PRN #30 tablet 02/04/20 levoFLOXacin [Levaquin] 750 mg PO DAILY #10 tab 02/04/20 metroNIDAZOLE [Flagyl] 500 mg PO Q8H #30 tablet 02/04/20 New Medications: Acetic Acid 0.25% [Acetic Acid 0.25%*] 10 ml IR DAILY #1 bottle levoFLOXacin [Levaquin] 750 mg PO DAILY #10 tab metroNIDAZOLE [Flagyl] 500 mg PO Q8H #30 tablet Tramadol HCl [Ultram] 50 mg PO Q6H PRN #30 tablet PRN Reason: Pain Patient Discharge Instructions: irrigate wound with acetic acid, pack and dress with hydrofera blue daily. Follow up with wound care clinic within 1- [address] chest and abdomen with contrast within 2 weeks. Diet: Regular Activity: Fall precautions Followup: Jc Rodríguez MD [ACTIVE - CAN ADMIT] - 1-2 Weeks Time spent managing pt's care (in minutes): 45
[2020-02-04 14:16] VITALS: BP 116/67
== END 2020-02-04 17:29 | DRG 579 ==
LOC: ER 12:04 → ERHOLD 15:24 → 2ND 16:54 → OBSVTOIN 01-28 08:01
PROVIDERS: ADMIT Family Medicine; ATTEND Internal Medicine
PROC: 0W9G4ZZ Drainage of Peritoneal Cavity, Percutaneous Endoscopic Approach (ICD-10-PCS; 2020-01-28)
PROC: 0WBF4ZZ Excision of Abdominal Wall, Percutaneous Endoscopic Approach (ICD-10-PCS; principal; 2020-01-28 15:30)
DX: L02.211 Cutaneous abscess of abdominal wall (principal); E43 Unspecified severe protein-calorie malnutrition; R64 Cachexia; E86.0 Dehydration; F17.210 Nicotine dependence, cigarettes, uncomplicated; Z68.20 Body mass index [BMI] 20.0-20.9, adult; F03.90 Unspecified dementia, unspecified severity, without behavioral disturbance, psychotic disturbance, mood disturbance, and anxiety
CPT/HCPCS: 36415; 71045; 71250; 71260; 74160; 74176; 76705; 80048; 80053; 81003; 81015; 83735; 84134; 85025; 85610; 85730; 87040; 87070; 87075; 87077; 87186; 87205; 88304; 88305; 96365; 96366; 97110; 97112; 97116; 97161; 97530; 99285; G0378; J1100; J1170; J1650; J2250; J2405; J2704; J2710; J3010; J7030; J7120; Q9967

== ENCOUNTER 2021-10-25 08:28 | Emergency (ER) | payer OTHER ==
[2021-10-25 09:13] LABS: Absolute Lymphocytes (CBC) 3.3 K/uL (0.7-4.9); Basophils % 1.2 % (0-1.3); Hematocrit 42.6 % (39.6-49.0); Lymphocytes % 38.1 % (15.3-44.8); MPV 8.1 fL (7.6-11.3); RBC Red Blood Cell Count 4.68 M/uL (4.33-5.43)
[2021-10-25 09:16] LABS: Protime INR 1.09
[2021-10-25] MEDS ORDERED: ONDANSETRON 4 MG/2 ML VIAL ONE (09:16)
[2021-10-25] MEDS ORDERED: MORPHINE 4 MG/ML SYR ONE (09:16)
[2021-10-25 09:33] LABS: ALT/SGPT 22 U/L (12-78); AST/SGOT 13 U/L (15-37); Albumin 3.8 g/dL (3.4-5.0); Alkaline Phosphatase 222 U/L (45-117); BUN Blood Urea Nitrogen 16 mg/dL (7-18); Bicarbonate 30 mmol/L (21-32); Bilirubin Direct 0.2 mg/dL (0-0.2); Bilirubin Total 0.5 mg/dL (0.2-1.0); Glucose Level 115 mg/dL (74-106); Magnesium 2.2 mg/dL (1.8-2.4); NT PRO-BNP 106 pg/mL (<125); Potassium 3.8 mmol/L (3.5-5.1); Protein, Total 7.4 g/dL (6.4-8.2); Sodium Level 142 mmol/L (136-145); Troponin (Emerg Dept Use Only) < 0.02 ng/mL (0.0-0.045)
[2021-10-25] MEDS ORDERED: FAMOTIDINE 20 MG/2 ML VIAL IV ONE (09:36)
--- NOTE | 2021-10-25 10:22 | RAD REPORT ---
EXAM DESCRIPTION: Tracy Single View10/25/2021 10:14 am CLINICAL HISTORY: Chest pain COMPARISON: 2019 FINDINGS: The lungs appear clear of acute infiltrate. The heart is normal size IMPRESSION: No acute abnormalities displayed
--- NOTE | 2021-10-25 10:31 | RAD REPORT ---
EXAM DESCRIPTION: CT - Abdomen Pelvis W Contrast - 10/25/2021 10:14 am CLINICAL HISTORY: Abdominal pain COMPARISON: 2019 TECHNIQUE: Computed axial tomography of the abdomen pelvis was obtained. 100 cc Isovue-300 was admin istered intravenously. Oral contrast was not requested which limits evaluation of bowel. All CT scans are performed using dose optimization technique as appropriate and may include automated exposure control or mA/KV adjustment according to patient size. FINDINGS: Multiple gallstones. Gallbladder wall is probably mildly thickened The liver, spleen, pancreas, adrenal and kidneys appear unremarkable. There is no evidence of diverticulitis. . Normal appendix. 2.7 centimeter cystic subcutaneous lesion left flank Small hiatal hernia IMPRESSION: Cholelithiasis with probable mild gallbladder wall thickening may indicate cholecystitis
--- NOTE | 2021-10-25 11:55 | RAD REPORT ---
EXAM DESCRIPTION: US - Abdomen Exam Limited - 10/25/2021 11:46 am CLINICAL HISTORY: Abdominal pain. COMPARISON: CT abdomen October 25, 2021 FINDINGS: Multiple gallstones. Gallbladder wall measures 5 millimeters. The biliary tree is normal caliber. IMPRESSION: Cholelithiasis. Thickened gallbladder wall may indicate cholecystitis
--- NOTE | 2021-10-25 12:14 | ER ---
Nurse's Notes [facility] Name: Maurice Melendez Age: 66 yrs Sex: Male : 1955 Arrival Date: 10/25/2021 Time: 08:35 Bed 20 Private MD: Diagnosis: Abdominal pain, Generalized Presentation: 10/25 08:38 Chief complaint: EMS states: they were called to [facility]. It is reported patient ap3 was having left side flank pain, which radiates to the abdomen. Upon arrival to the ED patient is reporting the pain traveling to the epigastric area. Coronavirus screen: At this time, the client does not indicate any symptoms associated with coronavirus-19. Ebola Screen: No symptoms or risks identified at this time. Initial Sepsis Screen: Does the patient meet any 2 criteria? No. Patient's initial sepsis screen is negative. Does the patient have a suspected source of infection? No. Patient's initial sepsis screen is negative. Risk Assessment: Do you want to hurt yourself or someone else? Patient reports no desire to harm self or others. Onset of symptoms was October 25, 2021. 08:38 Method Of Arrival: EMS: [facility] ap3 08:38 Acuity: DOUG 3 ap3 Historical: - Allergies: 08:41 No Known Allergies; ap3 - Home Meds: 08:41 Claritin 10 mg Oral tab 1 tab once daily [Active]; Flonase 50 mcg/actuation Nasal spsn ap3 1 spray once daily [Active]; tramadol 50 mg Oral tab 1 tab BID as needed for pain [Active]; Fleet Enema 19-7 gram/118 mL Rectal enem as needed [Active]; acetaminophen 325 mg Oral cap 325 mg as needed orally every 4 hours [Active]; Zofran 4 mg Oral tab 1 tab daily [Active]; multivitamin oral tab daily [Active]; Vitamin C 500 mg Oral tab daily [Active]; melatonin 3 mg Oral tab 2 tab nightly [Active]; citalopram 20 mg tab 1 tab once daily [Active]; Aricept 5 mg Oral tab nightly [Active]; Namenda 5 mg oral tab 1 tab 2 times per day [Active]; Vitamin D Oral [Active]; - PMHx: 08:41 abdominal wall abcess; Dementia; muscle weakness; ap3 - PSHx: 08:41 abdominal wall abcess removal with drain placement; ap3 - Immunization history:: Adult Immunizations up to date. - Social history:: Smoking status: Patient denies any tobacco usage or history of. Screenin:51 Abuse screen: Denies threats or abuse. Nutritional screening: No deficits noted. ap3 Tuberculosis screening: No symptoms or risk factors identified. Fall Risk No fall in past 12 months (0 pts). Secondary diagnosis (15 points) dementia, No IV (0 pts). Ambulatory Aid- None/Bed Rest/Nurse Assist (0 pts). Gait- Weak (10 pts.). Mental Status- Overestimates/Forgets Limitations (15 pts.). Total Narvaez Fall Scale indicates High Risk Score (45 or more points). Fall prevention measures have been instituted. Side Rails Up X 2 Placed Close to Nursing Station Frequent Obs/Assessments Occuring. Assessment: 08:49 General: Appears in no apparent distress. Behavior is calm, cooperative. Pain: ap3 Complains of pain in low back area Pain radiates to epigastric area, umbilical area, left upper quadrant and left lower quadrant Pain currently is 4 out of 10 on a pain scale. Quality of pain is described as crampy, Pain began this morning. Neuro: Level of Consciousness is awake, alert, obeys commands, Oriented to person, place, situation, Speech is normal. Cardiovascular: Patient's skin is warm and dry. Respiratory: Airway is patent Respiratory effort is even, unlabored, Respiratory pattern is regular, symmetrical. GI: Reports normal bowel habits, Patient currently denies nausea, vomiting. 09:31 Reassessment: Patient and/or family updated on plan of care and expected duration. Pain ap3 level reassessed. Patient is alert, oriented x 3, equal unlabored respirations, skin warm/dry/pink. 10:27 Reassessment: Patient and/or family updated on plan of care and expected duration. Pain ap3 level reassessed. Patient is alert, oriented x 3, equal unlabored respirations, skin warm/dry/pink. Patient states symptoms have improved. 12:00 Reassessment: Patient and/or family updated on plan of care and expected duration. Pain ap3 level reassessed. Patient is alert, oriented x 3, equal unlabored respirations, skin warm/dry/pink. 12:31 Reassessment: nurse called report to [facility], to Monik LE. ap3 Vital Signs: 08:38 BP 169 / 84 LA (auto/reg); ap3 08:38 Pulse 71; Resp 18; Temp 98.9(O); Pulse Ox 100% on R/A; Weight 75.3 kg; Height 66 in. ap3 (167.64 cm); Pain 4/10; 09:09 BP 152 / 83; Pulse 84; Pulse Ox 99% on R/A; ap3 10:27 BP 131 / 71; Pulse 71; Resp 16; Pulse Ox 100% on R/A; ap3 12:02 BP 140 / 54; Pulse 60; Pulse Ox 96% on R/A; ap3 08:38 Body Mass Index 26.79 (75.30 kg, 167.64 cm) ap3 ED Course: 08:35 Patient arrived in ED. iw 08:38 Ana Pascual RN is Primary Nurse. ap3 08:39 Femi Joyce MD is Attending Physician. kdr 08:41 Triage completed. ap3 08:51 Patient has correct armband on for positive identification. Bed in low position. Call ap3 light in reach. Side rails up X2. satellite project site monitor on. Pulse ox on. NIBP on. Door closed. Noise minimized. Warm blanket given. 08:52 Arm band placed on left wrist. EKG done per protocol. Performed by ED Staff. Shown to ap3 ED physician. 09:00 Inserted saline lock: 20 gauge in right antecubital area, using aseptic technique. ap3 Blood collected. 09:05 Initial lab(s) drawn, by mn, sent to lab. ap3 10:[address] via stretcher. ap3 10:14 XRAY Chest (1 view) In Process Unspecified. EDMS 10:14 CT Abd/Pelvis - IV Contrast Only In Process Unspecified. EDMS 11:46 US Abdomen Limited In Process Unspecified. EDMS 12:13 Jl Ko MD is Referral Physician. kdr 12:39 IV discontinued, intact, bleeding controlled, No redness/swelling at site. Pressure ap3 dressing applied. 12:39 No provider procedures requiring assistance completed. ap3 Administered Medications: 09:20 Drug: morphine 4 mg Route: IVP; Site: right antecubital; ap3 09:52 Follow up: Response: No adverse reaction; Pain is decreased; RASS: Alert and Calm (0) ap3 12:36 Follow up: Response: No adverse reaction; Pain is decreased; RASS: Alert and Calm (0) ap3 09:20 Drug: Zofran (Ondansetron) 4 mg Route: IVP; Site: right antecubital; ap3 09:30 Follow up: Response: No adverse reaction ap3 12:35 Follow up: Response: No adverse reaction ap3 09:51 Drug: Pepcid (famotidine) 20 mg Route: IVP; Site: right antecubital; ap3 12:35 Follow up: Response: No adverse reaction ap3 Outcome: 12:13 Discharge ordered by . kit 13:01 Discharged to [facility]. Report called to Monik at [facility] ap3 13:01 Condition: good 13:01 Discharge instructions given to patient, [facility], Instructed on discharge instructions, follow up and referral plans. medication usage, Demonstrated understanding of instructions, follow-up care, medications, Prescriptions given X 2. 13:02 Patient left the ED. ap3 Signatures: Dispatcher [employer] EDMS Femi Joyce MD MD kdr Maty Robledo RN RN iw Ana Pascual RN RN ap3 Corrections: (The following items were deleted from the chart) 08:49 08:41 PMHx: Alzheimers; ap3 ap3 12:34 12:31 Reassessment: nurse called report to [place] [id number] ap3
--- NOTE | 2021-10-25 12:14 | EDPHYS ---
Physician Documentation [facility] Name: Maurice Melendez Age: 66 yrs Sex: Male : 1955 Arrival Date: 10/25/2021 Time: 08:35 Bed 20 Private MD: ED Physician Femi Joyce HPI: 10/25 09:47 This 66 yrs old Unknown Male presents to ER via EMS with complaints of Abdominal pain. kdr 09:47 The patient presents with abdominal pain that is diffuse. Onset: The symptoms/episode kdr began/occurred acutely, this morning. The symptoms do not radiate. Associated signs and symptoms: Pertinent positives: nausea, Pertinent negatives: chest pain, constipation, diarrhea, vomiting, The patient denies flatus this morning. The symptoms are described as achy, constant, crampy, steady, vague. Modifying factors: The symptoms are alleviated by nothing, the symptoms are aggravated by movement. Severity of pain: At its worst the pain was mild moderate just prior to arrival, in the emergency department the pain has resolved. The patient has not experienced similar symptoms in the past. The patient has not recently seen a physician. Historical: - Allergies: 08:41 No Known Allergies; ap3 - Home Meds: 08:41 Claritin 10 mg Oral tab 1 tab once daily [Active]; Flonase 50 mcg/actuation Nasal spsn ap3 1 spray once daily [Active]; tramadol 50 mg Oral tab 1 tab BID as needed for pain [Active]; Fleet Enema 19-7 gram/118 mL Rectal enem as needed [Active]; acetaminophen 325 mg Oral cap 325 mg as needed orally every 4 hours [Active]; Zofran 4 mg Oral tab 1 tab daily [Active]; multivitamin oral tab daily [Active]; Vitamin C 500 mg Oral tab daily [Active]; melatonin 3 mg Oral tab 2 tab nightly [Active]; citalopram 20 mg tab 1 tab once daily [Active]; Aricept 5 mg Oral tab nightly [Active]; Namenda 5 mg oral tab 1 tab 2 times per day [Active]; Vitamin D Oral [Active]; - PMHx: 08:41 abdominal wall abcess; Dementia; muscle weakness; ap3 - PSHx: 08:41 abdominal wall abcess removal with drain placement; ap3 - Immunization history:: Adult Immunizations up to date. - Social history:: Smoking status: Patient denies any tobacco usage or history of. ROS: 09:47 Constitutional: Negative for fever, chills, and weight loss, Eyes: Negative for injury, kdr pain, redness, and discharge, Neck: Negative for injury, pain, and swelling, Cardiovascular: Negative for chest pain, palpitations, and edema, Respiratory: Negative for shortness of breath, cough, wheezing, and pleuritic chest pain, Back: Negative for injury and pain, : Negative for injury, bleeding, discharge, and swelling, MS/Extremity: Negative for injury and deformity, Skin: Negative for injury, rash, and discoloration, Neuro: Negative for headache, weakness, numbness, tingling, and seizure activity. Psych: Negative for depression, anxiety, suicide ideation, homicidal ideation, and hallucinations, Allergy/Immunology: Negative for hives, rash, and allergies, Endocrine: Negative for neck swelling, polydipsia, polyuria, polyphagia, and marked weight changes, Hematologic/Lymphatic: Negative for swollen nodes, abnormal bleeding, and unusual bruising. 09:47 Abdomen/GI: Positive for abdominal pain, Negative for nausea, vomiting, and diarrhea, constipation. Exam: 09:33 ECG was reviewed by the Attending Physician. kdr 09:47 Constitutional: This is a well developed, well nourished patient who is awake, alert, kdr and in no acute distress. Head/Face: Normocephalic, atraumatic. Eyes: Pupils equal round and reactive to light, extra-ocular motions intact. Lids and lashes normal. Conjunctiva and sclera are non-icteric and not injected. Cornea within normal limits. Periorbital areas with no swelling, redness, or edema. Neck: Trachea midline, no thyromegaly or masses palpated, and no cervical lymphadenopathy. Supple, full range of motion without nuchal rigidity, or vertebral point tenderness. No Meningismus. Chest/axilla: Normal chest wall appearance and motion. Nontender with no deformity. No lesions are appreciated. Cardiovascular: Regular rate and rhythm with a normal S1 and S2. No gallops, murmurs, or rubs. Normal PMI, no JVD. No pulse deficits. Respiratory: Lungs have equal breath sounds bilaterally, clear to auscultation and percussion. No rales, rhonchi or wheezes noted. No increased work of breathing, no retractions or nasal flaring. Back: No spinal tenderness. No costovertebral tenderness. Full range of motion. Skin: Warm, dry with normal turgor. Normal color with no rashes, no lesions, and no evidence of cellulitis. MS/ Extremity: Pulses equal, no cyanosis. Neurovascular intact. Full, normal range of motion. Neuro: Awake and alert, GCS 15, oriented to person, place, time, and situation. Cranial nerves II-XII grossly intact. Motor strength 5/5 in all extremities. Sensory grossly intact. Cerebellar exam normal. Normal gait. Psych: Awake, alert, with orientation to person, place and time. Behavior, mood, and affect are within normal limits. 09:47 Abdomen/GI: Inspection: abdomen appears normal, Bowel sounds: active, all quadrants, diminished, Palpation: soft, mild abdominal tenderness, in the epigastric area, right upper quadrant and left upper quadrant. Vital Signs: 08:38 BP 169 / 84 LA (auto/reg); ap3 08:38 Pulse 71; Resp 18; Temp 98.9(O); Pulse Ox 100% on R/A; Weight 75.3 kg; Height 66 in. ap3 (167.64 cm); Pain 4/10; 09:09 BP 152 / 83; Pulse 84; Pulse Ox 99% on R/A; ap3 10:27 BP 131 / 71; Pulse 71; Resp 16; Pulse Ox 100% on R/A; ap3 12:02 BP 140 / 54; Pulse 60; Pulse Ox 96% on R/A; ap3 08:38 Body Mass Index 26.79 (75.30 kg, 167.64 cm) ap3 MDM: 09:47 Data reviewed: vital signs, nurses notes, lab test result(s), radiologic studies. kdr Counseling: I had a detailed discussion with the patient and/or guardian regarding: the historical points, exam findings, and any diagnostic results supporting the discharge/admit diagnosis, lab results, radiology results. 12:13 Patient medically screened. kdr 10/25 08:52 Order name: Basic Metabolic Panel em1 10/25 08:52 Order name: CBC with Diff; Complete Time: 11:07 em1 10/25 08:52 Order name: LFT's em1 10/25 08:52 Order name: Magnesium; Complete Time: 11:07 em1 10/25 08:52 Order name: NT PRO-BNP; Complete Time: 11:07 em1 10/25 08:52 Order name: PT-INR; Complete Time: 11:07 em1 10/25 08:52 Order name: Troponin (emerg Dept Use Only); Complete Time: 11:07 em1 10/25 08:52 Order name: XRAY Chest (1 view); Complete Time: 11:07 em1 10/25 08:53 Order name: Basic Metabolic Panel; Complete Time: 11:07 EDMS 10/25 08:53 Order name: Liver (Hepatic) Function; Complete Time: 11:07 EDMS 10/25 09:18 Order name: CT Abd/Pelvis - IV Contrast Only; Complete Time: 11:07 kdr 10/25 11:11 Order name: US Abdomen Limited; Complete Time: 11:58 kdr 10/25 08:52 Order name: EKG; Complete Time: 08:53 em1 10/25 08:52 Order name: Cardiac monitoring; Complete Time: 08:53 em1 10/25 08:52 Order name: EKG - Nurse/Tech; Complete Time: 08:53 em1 10/25 08:52 Order name: IV Saline Lock; Complete Time: 09:06 em1 10/25 08:52 Order name: Labs collected and sent; Complete Time: 09:06 em1 10/25 08:52 Order name: O2 Per Protocol; Complete Time: 08:53 em1 10/25 08:52 Order name: O2 Sat Monitoring; Complete Time: 08:53 em1 EC:33 Rate is 65 beats/min. Rhythm is regular, Sinus Rhythm with No ectopy. QRS [place] is kdr Normal. Left axis deviation noted. NC interval is normal. QRS interval is normal. QT interval is normal. Clinical impression: NSR w/ Non-specific ST/T Changes. Administered Medications: 09:20 Drug: morphine 4 mg Route: IVP; Site: right antecubital; ap3 09:52 Follow up: Response: No adverse reaction; Pain is decreased; RASS: Alert and Calm (0) ap3 12:36 Follow up: Response: No adverse reaction; Pain is decreased; RASS: Alert and Calm (0) ap3 09:20 Drug: Zofran (Ondansetron) 4 mg Route: IVP; Site: right antecubital; ap3 09:30 Follow up: Response: No adverse reaction ap3 12:35 Follow up: Response: No adverse reaction ap3 09:51 Drug: Pepcid (famotidine) 20 mg Route: IVP; Site: right antecubital; ap3 12:35 Follow up: Response: No adverse reaction ap3 Disposition Summary: 10/25/21 12:13 Discharge Ordered Location: Home kdr Problem: new kdr Symptoms: have improved kdr Condition: Stable kdr Diagnosis - Abdominal pain, Generalized kdr Followup: kdr - With: Jl Ko MD - When: 2 - 3 days - Reason: If symptoms return, Further diagnostic work-up, Recheck today's complaints, Continuance of care, Re-evaluation by your physician Discharge Instructions: - Discharge Summary Sheet kdr - Abdominal Pain, Adult, [id number] kdr Forms: - Medication Reconciliation Form kdr - Thank You Letter kdr - Antibiotic Education kdr Prescriptions: - Zofran 4 mg Oral Tablet - take 1 tablet by ORAL route every 4-6 hours As needed; 12 tablet; Refills: 0, kdr Product Selection Permitted - Cipro 500 mg Oral Tablet - take 1 tablet by ORAL route every 12 hours for 7 days; 14 tablet; Refills: 0, kdr Product Selection Permitted - Pepcid 20 mg Oral Tablet - take 1 tablet by ORAL route once daily; 20 tablet; Refills: 0, Product kdr Selection Permitted Signatures: Dispatcher [employer] Femi Eid MD MD kdr Jeffrey Rodríguez em1 Ana Pascual RN RN ap3 Corrections: (The following items were deleted from the chart) 08:49 08:41 PMHx: Alzheimers; ap3 ap3
[2021-10-25 13:06] VITALS: TEMP 98.9
[2021-10-25 13:10] VITALS: BP 140/54; O2SAT 96
--- NOTE | 2021-10-27 17:04 | EKG ---
Test Date: 2021-10-25 Test Time: 08:39:56 Certified Hand Therapist: BHAVNA MEASUREMENT RESULTS: Intervals: Rate: 65 LA: 142 QRSD: 140 QT: 446 QTc: 463 [place]: P: 81 LA: 142 QRS: -82 T: 68 INTERPRETIVE STATEMENTS: Normal sinus rhythm Left axis deviation Right bundle branch block Abnormal ECG No previous ECG available for comparison Electronically Signed On 10-27-21 17:00:21 [employer] by George Card
== END 2021-10-25 13:02 | disposition home or self-care (01) ==
LOC: ER 08:28
DX: R10.84 Generalized abdominal pain (principal); F03.90 Unspecified dementia, unspecified severity, without behavioral disturbance, psychotic disturbance, mood disturbance, and anxiety
CPT/HCPCS: 93005; 85025; 80048; 36415; 83735; 85610; 80076; 84484; 83880; 74177; 71045; 76705; 96375; 96374; 99285; Q9967; J2405

== ENCOUNTER 2022-06-21 18:06 | Emergency (ER) | payer OTHER ==
--- NOTE | 2022-06-21 19:16 | RAD REPORT ---
EXAM DESCRIPTION: RAD - Chest Single View - 06/21/2022 7:04 pm CLINICAL HISTORY: upper abdomen pain COMPARISON: Portable 10/25/2021 TECHNIQUE: AP portable chest image was obtained 06/21/2022 7:04 pm . FINDINGS: No acute focal lung parenchymal process. Interstitial pattern matches comparison. Heart an d vasculature are normal. No measurable pleural effusion and no pneumothorax. No acute bony abnormali ty seen. No acute aortic findings suspected. IMPRESSION: No acute cardiopulmonary process. No significant change from comparison study.
[2022-06-21 19:33] LABS: Protime INR 1.08
[2022-06-21 19:34] LABS: Absolute Lymphocytes (CBC) 4.2 K/uL (0.7-4.9); Hematocrit 44.8 % (39.6-49.0); MCV 91.6 fL (80-100); MPV 8.1 fL (7.6-11.3)
[2022-06-21 19:53] LABS: Bilirubin Direct 0.2 mg/dL (0-0.2); Bilirubin Total 0.6 mg/dL (0.2-1.0); Magnesium 2.4 mg/dL (1.8-2.4); Potassium 3.8 mmol/L (3.5-5.1); Protein, Total 7.5 g/dL (6.4-8.2); Troponin High Sensitivity 6.6 pg/mL (<58.9)
[2022-06-21] MEDS ORDERED: ONDANSETRON 4 MG/2 ML VIAL ONE (20:48)
[2022-06-21] MEDS ORDERED: NA CHLORIDE 0.9% 1,000 ML ONE ×2 (20:48→22:53)
[2022-06-21] MEDS ORDERED: MORPHINE 4 MG/ML SYR ONE (20:48)
--- NOTE | 2022-06-21 21:27 | RAD REPORT ---
EXAM DESCRIPTION: CT - Abdomen Pelvis W Contrast - 06/21/2022 9:00 pm CLINICAL HISTORY: upper abdomen pain COMPARISON: CT abdomen and pelvis October 2021 TECHNIQUE: Biphasic, helical CT imaging of the abdomen and pelvis was performed following 100 ml non -ionic IV contrast. No oral contrast administered. All CT scans are performed using dose optimization technique as appropriate and may include automated exposure control or mA/KV adjustment according to patient size. FINDINGS: No suspicious findings in the lung bases. Liver and spleen show no suspicious findings. Gallbladder is distended and contains multiple gallston es. Common bile duct is dilated to 10 mm. Duct stone is evident. There is edema and fluid surrounding the pancreas. Periportal and peripancreatic lymph nodes are present. Fluid continues along each ante rior renal fascia. Symmetric renal function is seen with no hydronephrosis or suspicious renal mass. No pyelonephritis o r acute parenchymal process. No bladder abnormalities. No adrenal abnormalities. No dilated bowel loops or bowel wall thickening. No direct or indirect evidence for appendicitis. No free air, free fluid or inflammatory stranding. No hernia, mass or bulky lymphadenopathy. No suspicious bony findings. IMPRESSION: Moderate acute pancreatitis findings believed to be secondary to choledocholithiasis. Common bile duct is dilated to 10 mm with minimal intrahepatic dilatation. There is evidence for a du ct stone. Multi stone cholelithiasis within distended gallbladder.
[2022-06-21 22:51] LABS: SARS-CoV-2 Antigen Rapid Res Negative (Negative)
[2022-06-21] MEDS ORDERED: PIPERACIL/TAZO 3.375 GM VIAL IV ONE (22:52)
[2022-06-21] MEDS ORDERED: NA CHLORIDE 0.9% 100 ML ONE (22:53)
[2022-06-21] MEDS ORDERED: HYDROMORPHONE HCL 1 MG/ML INJ ONE (23:18)
--- NOTE | 2022-06-21 23:47 | EDPHYS ---
Physician Documentation [facility] Name: Maurice Melendez Age: 67 yrs Sex: Male : 1955 Arrival Date: 06/21/2022 Time: 18:12 Bed 14 Private MD: ED Physician Pelon Chaney HPI: 06/21 18:30 This 67 yrs old Male presents to ER via Unassigned with complaints of Abdominal Pain. cp 18:30 The patient presents with abdominal pain in the upper abdomen. Onset: The cp symptoms/episode began/occurred today. The symptoms radiate to back. Associated signs and symptoms: Pertinent positives: chest pain, nausea, Pertinent negatives: blood in stools, vomiting. 18:30 The symptoms are described as burning. cp 18:30 Severity of pain: in the emergency department the pain is unchanged despite EMS cp interventions. Historical: - Allergies: 18:30 No Known Allergies; kb3 - Home Meds: 18:30 acetaminophen 325 mg Oral cap 325 mg as needed orally every 4 hours [Active]; Aricept 5 kb3 mg Oral tab nightly [Active]; citalopram 20 mg tab 1 tab once daily [Active]; Claritin 10 mg Oral tab 1 tab once daily [Active]; Fleet Enema 19-7 gram/118 mL Rectal enem as needed [Active]; Flonase 50 mcg/actuation Nasal spsn 1 spray once daily [Active]; melatonin 3 mg Oral tab 2 tab nightly [Active]; multivitamin Oral tab daily [Active]; Namenda 5 mg Oral tab 1 tab 2 times per day [Active]; tramadol 50 mg Oral tab 1 tab BID as needed for pain [Active]; Vitamin C 500 mg Oral tab daily [Active]; Vitamin D Oral [Active]; Zofran 4 mg Oral tab 1 tab daily [Active]; - PMHx: 18:30 abdominal wall abcess; Dementia; MUSCLE WEAKNESS; Gallstone; Chronic obstructive lung kb3 disease; Depressive disorder; - PSHx: 18:30 abdominal wall abcess removal with drain placement; kb3 - Immunization history:: Adult Immunizations unknown, Client reports receiving the 2nd dose of the Covid vaccine, Last tetanus immunization: unknown. - Social history:: Smoking status: Patient/guardian denies using tobacco, but has a distant history of tobacco abuse. ROS: 18:35 Constitutional: Negative for body aches, chills, fever, poor PO intake. cp 18:35 Eyes: Negative for injury, pain, redness, and discharge. cp 18:35 ENT: Negative for drainage from ear(s), ear pain, sore throat, difficulty swallowing, difficulty handling secretions. 18:35 Cardiovascular: Positive for chest pain, Negative for edema, palpitations. 18:35 Respiratory: Negative for cough, shortness of breath, wheezing. 18:35 Abdomen/GI: Positive for abdominal pain, nausea, of the epigastric area and right upper quadrant, Negative for vomiting, diarrhea, constipation, hematemesis, black/tarry stool, rectal bleeding. 18:35 Back: Positive for radiated pain, Negative for injury or acute deformity. 18:35 : Negative for urinary symptoms. 18:35 Neuro: Negative for altered mental status, dizziness, headache, syncope, weakness. 18:35 All other systems are negative. Exam: 18:40 Head/Face: Normocephalic, atraumatic. cp 18:40 Constitutional: The patient appears in no acute distress, alert, awake, non-diaphoretic, non-toxic, well developed, well nourished, uncomfortable. 18:40 Eyes: Periorbital structures: appear normal, Conjunctiva: normal, no exudate, no injection, Sclera: no appreciated abnormality, Lids and lashes: appear normal, bilaterally. 18:40 ENT: External ear(s): are unremarkable, Nose: is normal, Mouth: Lips: dry, Oral mucosa: moist, Posterior pharynx: Airway: no evidence of obstruction, patent. 18:40 Chest/axilla: Inspection: normal. 18:40 Cardiovascular: Rate: normal, Rhythm: regular, Edema: is not appreciated, JVD: is not appreciated. 18:40 Respiratory: the patient does not display signs of respiratory distress, Respirations: normal, no use of accessory muscles, no retractions, labored breathing, is not present, Breath sounds: are clear throughout, no decreased breath sounds, no stridor, no wheezing. 18:40 Abdomen/GI: Inspection: scar(s), are noted in the right upper quadrant, Bowel sounds: active, all quadrants, Palpation: soft, in all quadrants, severe abdominal tenderness, in the epigastric area and right upper quadrant, rebound tenderness, is not appreciated, voluntary guarding, is elicited in the epigastric area and right upper quadrant. 18:40 Skin: cellulitis, is not appreciated, no rash present. 18:40 Neuro: Orientation: to person, place \T\ time. Mentation: is normal, Motor: moves all fours, strength is normal, Sensation: is normal. 19:11 ECG was reviewed by the Attending Physician. Vital Signs: 18:30 BP 189 / 88; Pulse 71; Resp 18; Temp 98; Pulse Ox 96% ; Weight 72.57 kg; Height 5 ft. 9 kb3 in. (175.26 cm); Pain 5/10; 19:00 BP 150 / 72; Pulse 71; Resp 18; Pulse Ox 97% ; Pain 5/10; kb3 20:00 BP 145 / 86; Pulse 79; Resp 20; Pulse Ox 99% ; Pain 5/10; kb3 21:33 BP 146 / 83; Pulse 73; Resp 18; Pulse Ox 100% ; Pain 0/10; kb3 22:05 BP 144 / 68; Pulse 69; Resp 18; Pulse Ox 97% ; Pain 6/10; kb3 23:00 BP 142 / 71; Pulse 74; Resp 18; Pulse Ox 97% ; Pain 8/10; kb3 06/22 00:47 BP 142 / 82; Pulse 84; Resp 18; Pulse Ox 98% ; Pain 0/10; kb3 08 18:30 Body Mass Index 23.63 (72.57 kg, 175.26 cm) kb3 MDM: 06/21 18:21 Patient medically screened. 19:00 Differential diagnosis: acute coronary syndrome, appendicitis, bowel obstruction, cp cholecystitis, Cholelithiasis, gastritis, gastroesophageal reflux disease, pancreatitis, Peptic Ulcer Disease, Perf. Duodenal Ulcer, Perf. Gastric Ulcer. 21:35 Data reviewed: vital signs, nurses notes, lab test result(s), radiologic studies, CT cp scan. 21:35 Test interpretation: by ED physician or midlevel provider: ECG, plain radiologic cp studies. 23:50 Physician consultation: was contacted at 23:45, regarding regarding transfer, to [facility]. accepting physician will DR Cook. 06/21 18:21 Order name: Basic Metabolic Panel; Complete Time: 20:14 06/21 20:14 Interpretation: Normal except: GLUC 115; BUN 19; GFR 83. cp 08/12 18:21 Order name: CBC with Diff; Complete Time: 20:14 cp 08/12 20:15 Interpretation: Normal except: WBC 16.3; NEUT A 11.3. cp 08/12 18:21 Order name: LFT's; Complete Time: 20:14 cp 08/12 20:15 Interpretation: Normal except: ALK 171. cp 08/12 18:21 Order name: Magnesium; Complete Time: 20:14 cp 08/12 18:21 Order name: NT PRO-BNP; Complete Time: 20:14 cp 08/12 20:15 Interpretation: Abnormal: NT PRO-BNP 159. cp 08/12 18:21 Order name: PT-INR; Complete Time: 20:14 cp 08/12 18:21 Order name: Troponin HS; Complete Time: 20:14 cp 08/12 20:15 Interpretation: Troponin HS 6.6; Reviewed. cp 08/12 18:21 Order name: XRAY Chest (1 view); Complete Time: 19:21 cp 08/12 18:21 Order name: Lipase; Complete Time: 20:14 cp 08/12 20:15 Interpretation: Abnormal: LIP 90846. cp 08/12 19:22 Order name: CT Abd/Pelvis - IV Contrast Only; Complete Time: 21:31 cp 08/12 21:10 Order name: SARS RAPID; Complete Time: 23:28 cp 08/12 23:28 Interpretation: Reviewed. cp 08/12 21:33 Order name: Lactate; Complete Time: 23:28 cp 08/12 23:28 Interpretation: Reviewed. cp 08/12 21:33 Order name: Procalcitonin; Complete Time: 23:28 cp 08/12 23:28 Interpretation: Reviewed. cp 08/12 21:33 Order name: Blood Culture Adult (2) cp 08/12 18:21 Order name: EKG; Complete Time: 18:23 cp 08/12 18:21 Order name: Cardiac monitoring; Complete Time: 19:03 cp 08/12 18:21 Order name: EKG - Nurse/Tech; Complete Time: 19:25 cp 08/12 18:21 Order name: IV Saline Lock; Complete Time: 19:25 cp 08/12 18:21 Order name: Labs collected and sent; Complete Time: 19:25 cp 08/12 18:21 Order name: O2 Per Protocol; Complete Time: 19:25 cp 06/21 18:21 Order name: O2 Sat Monitoring; Complete Time: 19:25 cp EC:11 Rate is 68 beats/min. Rhythm is regular. MA interval is normal. QRS interval is cp prolonged at 142 msec. QT interval is normal. T waves are Inverted in leads aVR, V2, V3. Interpreted by me. Reviewed by me. Administered Medications: 20:15 Drug: morphine 4 mg Route: IVP; Infused Over: 4 mins; Site: right antecubital; kb3 22:39 Follow up: Response: No adverse reaction kb3 20:15 Drug: Zofran (Ondansetron) 4 mg Route: IVP; Site: right antecubital; kb3 22:39 Follow up: Response: No adverse reaction kb3 20:15 Drug: NS 0.9% 1000 ml Route: IV; Rate: 1 bolus; Site: right antecubital; kb3 22:40 Follow up: Response: No adverse reaction; IV Status: Completed infusion; IV Intake: kb3 1000ml 22:51 Drug: Zosyn (piperacillin-tazobactam) 3.375 grams Route: IVPB; Infused Over: 60 mins; kb3 Site: right antecubital; 23:20 Follow up: IV Status: Completed infusion; IV Intake: 100ml kb3 23:20 Follow up: Response: No adverse reaction kb3 22:52 Drug: NS 0.9% 1000 ml Route: IV; Rate: 100 ml/hr; Site: right antecubital; kb3 06/22 01:44 Follow up: IV Status: Infusion continued upon transfer; IV Intake: 200ml kb3 06/21 23:18 Drug: Dilaudid (HYDROmorphone) 1 mg Route: IVP; Site: right antecubital; kb3 06/22 00:15 Follow up: Response: No adverse reaction; Pain is decreased kb3 01:43 Follow up: Response: No adverse reaction; Pain is decreased kb3 Disposition Summary: 06/21/22 23:46 Transfer Ordered Transfer Location: [facility] cp Reason: Higher level of care cp Condition: Stable cp Problem: new cp Symptoms: have improved cp Accepting Physician: DR Cook(06/22/22 01:45) kb3 Diagnosis - Biliary acute pancreatitis cp - Choledocholithiasis cp Forms: - Medication Reconciliation Form cp - SBAR form cp Addendum: 06/23/2022 13:58 Attestation: The patient's history, exam findings, diagnostics, and a summary of any j r11 interventions or procedures was reviewed in detail with Alex KNOX. Signatures: Dispatcher [employer] EDMS Alex Downing PA PA cp Pelon Chaney MD MD [id number] Sheree Suarez RN RN kb3 Corrections: (The following items were deleted from the chart) 06/21 21: 21:12 This 67 yrs old Male presents to ER via Unassigned with complaints of Abdominal cp Pain. cp 06/22 01:45 06/21 23:46 DR Cook cp kb3 06/22 21:06/20 18:40 Constitutional: The patient appears in no acute distress, alert, awake, cp non-diaphoretic, non-toxic, well developed, well nourished, uncomfortable, cp 06/22 21:06/20 18:40 Head/Face: Normocephalic, atraumatic. cp cp 06/22 21:06/20 18:40 Eyes: Periorbital structures: appear normal, Conjunctiva: normal, no cp exudate, no injection, Sclera: no appreciated abnormality, Lids and lashes: appear normal, bilaterally, cp 06/22 21:45 06/20 18:40 ENT: External ear(s): are unremarkable, Nose: is normal, Mouth: Lips: dry, cp Oral mucosa: moist, Posterior pharynx: Airway: no evidence of obstruction, patent, cp 06/22 21:06/20 18:40 Chest/axilla: Inspection: normal, cp cp 06/22 21:06/20 18:40 Cardiovascular: Rate: normal, Rhythm: regular, Edema: is not appreciated, cp JVD: is not appreciated, cp 06/22 21:06/20 18:40 Respiratory: the patient does not display signs of respiratory distress, cp Respirations: normal, no use of accessory muscles, no retractions, labored breathing, is not present, Breath sounds: are clear throughout, no decreased breath sounds, no stridor, no wheezing, cp 06/22 21:06/20 18:40 Abdomen/GI: Inspection: scar(s), are noted in the right upper quadrant, cp Bowel sounds: active, all quadrants, Palpation: soft, in all quadrants, severe abdominal tenderness, in the epigastric area and right upper quadrant, rebound tenderness, is not appreciated, voluntary guarding, is elicited in the epigastric area and right upper quadrant, cp 06/22 21:45 06/20 18:40 Skin: cellulitis, is not appreciated, no rash present. cp cp 06/22 21:06/20 18:40 Neuro: Orientation: to person, place \T\ time. Mentation: is normal, Motor: cp moves all fours, strength is normal, Sensation: is normal, cp
--- NOTE | 2022-06-21 23:47 | ER ---
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 18:20 Coronavirus screen: Vaccine status: Patient reports receiving the 2nd dose of the covid kb3 vaccine. Client denies travel out of the [place] in the last 14 days. Ebola Screen: Patient negative for fever greater than or equal to 101.5 degrees Fahrenheit, and additional compatible Ebola Virus Disease symptoms Patient denies exposure to infectious person. Patient denies travel to an Ebola-affected area in the 21 days before illness onset. 18:20 Method Of Arrival: EMS: [facility] 3 18:30 Initial Sepsis Screen: Does the patient meet any 2 criteria? No. Patient's initial kb3 sepsis screen is negative. Risk Assessment: Do you want to hurt yourself or someone else? Patient reports no desire to harm self or others. Onset of symptoms was June 21, 2022 at 16:00. 18:30 Acuity: DOUG 3 kb3 18:30 Initial Sepsis Screen: Does the patient have a suspected source of infection? No. kb3 Patient's initial sepsis screen is negative. Triage Assessment: 18:30 General: Appears in no apparent distress. Pain: Complains of pain in epigastric area kb3 Pain does not radiate. Pain currently is 5 out of 10 on a pain scale. Quality of pain is described as burning, Pain began 2 hours ago. Is continuous, Also complains of nausea. Historical: - Allergies: 18:30 No Known Allergies; kb3 - Home Meds: 18:30 acetaminophen 325 mg Oral cap 325 mg as needed orally every 4 hours [Active]; Aricept 5 kb3 mg Oral tab nightly [Active]; citalopram 20 mg tab 1 tab once daily [Active]; Claritin 10 mg Oral tab 1 tab once daily [Active]; Fleet Enema 19-7 gram/118 mL Rectal enem as needed [Active]; Flonase 50 mcg/actuation Nasal spsn 1 spray once daily [Active]; melatonin 3 mg Oral tab 2 tab nightly [Active]; multivitamin Oral tab daily [Active]; Namenda 5 mg Oral tab 1 tab 2 times per day [Active]; tramadol 50 mg Oral tab 1 tab BID as needed for pain [Active]; Vitamin C 500 mg Oral tab daily [Active]; Vitamin D Oral [Active]; Zofran 4 mg Oral tab 1 tab daily [Active]; - PMHx: 18:30 abdominal wall abcess; Dementia; MUSCLE WEAKNESS; Gallstone; Chronic obstructive lung kb3 disease; Depressive disorder; - PSHx: 18:30 abdominal wall abcess removal with drain placement; kb3 - Immunization history:: Adult Immunizations unknown, Client reports receiving the 2nd dose of the Covid vaccine, Last tetanus immunization: unknown. - Social history:: Smoking status: Patient/guardian denies using tobacco, but has a distant history of tobacco abuse. Screenin:30 Abuse screen: Denies threats or abuse. Denies injuries from another. Nutritional kb3 screening: No deficits noted. Tuberculosis screening: No symptoms or risk factors identified. Fall Risk Fall in past 12 months (25 points). Secondary diagnosis (15 points) IV access (20 points). Ambulatory Aid- Crutches/Cane/Walker (15 pts). Gait- Weak (10 pts.). Mental Status- Overestimates/Forgets Limitations (15 pts.). Total Narvaez Fall Scale indicates High Risk Score (45 or more points). Fall prevention measures have been instituted. Side Rails Up X 2 Placed Close to Nursing Station Frequent Obs/Assessments Occuring As available patient and family educated on Fall Prevention Program and Strategies. Assessment: 18:30 Reassessment: No changes from previously documented assessment. kb3 18:30 General: Appears in no apparent distress. uncomfortable, slender, Behavior is calm, kb3 cooperative. Pain: Complains of pain in epigastric area. 23:01 General: Pt reports his pain is increasing, rates epigastric pain 8/10, sharp. PA kb3 notified. 06/22 00:00 Reassessment: Patient and/or family updated on plan of care and expected duration. Pain kb3 level reassessed. 01:04 General: Report called to Awa LE at [facility]. kb3 01:30 General: Report given to Alejandra LE. kb3 01:42 General: Report given to EMS for pt transport to [facility]. kb3 Vital Signs: 06/21 18:30 BP 189 / 88; Pulse 71; Resp 18; Temp 98; Pulse Ox 96% ; Weight 72.57 kg; Height 5 ft. 9 kb3 in. (175.26 cm); Pain 5/10; 19:00 BP 150 / 72; Pulse 71; Resp 18; Pulse Ox 97% ; Pain 5/10; kb3 20:00 BP 145 / 86; Pulse 79; Resp 20; Pulse Ox 99% ; Pain 5/10; kb3 21:33 BP 146 / 83; Pulse 73; Resp 18; Pulse Ox 100% ; Pain 0/10; kb3 22:05 BP 144 / 68; Pulse 69; Resp 18; Pulse Ox 97% ; Pain 6/10; kb3 23:00 BP 142 / 71; Pulse 74; Resp 18; Pulse Ox 97% ; Pain 8/10; kb3 06/22 00:47 BP 142 / 82; Pulse 84; Resp 18; Pulse Ox 98% ; Pain 0/10; kb3 06/21 18:30 Body Mass Index 23.63 (72.57 kg, 175.26 cm) kb3 ED Course: 06/21 18:12 Patient arrived in ED. dh3 18:14 Alex Downing PA is PHCP. cp 18:14 Pelon Chaney MD is Attending Physician. cp 18:30 No apparent distress. kb3 18:30 Arm band placed on right wrist. EKG completed in triage. Results shown to MD. EKG kb3 completed in triage. Results shown to MD. 18:30 Patient has correct armband on for positive identification. Bed in low position. Call kb3 light in reach. Side rails up X2. Warm blanket given. Pillow given. 18:30 No provider procedures requiring assistance completed. Inserted saline lock: 20 gauge kb3 in right antecubital area, using aseptic technique. Blood collected. 18:37 Sheree Suarez, RN is Primary Nurse. kb3 19:06 XRAY Chest (1 view) In Process Unspecified. EDMS 21:02 CT Abd/Pelvis - IV Contrast Only In Process Unspecified. EDMS 21:41 Triage completed. kb3 22:37 initiated a transfer with Faye from [facility] [place]. mw2 22:39 Blood Culture Adult (2) Sent. kb3 22:39 Procalcitonin Sent. kb3 22:39 Lactate Sent. kb3 22:39 SARS RAPID Sent. kb3 23:37 Connected Alex KNOX with Dr. Liriano from [facility]. 2 06/22 00:07 administrative approval given by Faye Theodore/ patient has been accepted to [address] to bed 1060/ Dr. Liriano accepted the patient in transfer/ report to be called to [phone]. 01:43 Patient transferred, IV remains in place. kb3 Administered Medications: 06/21 20:15 Drug: morphine 4 mg Route: IVP; Infused Over: 4 mins; Site: right antecubital; kb3 22:39 Follow up: Response: No adverse reaction kb3 20:15 Drug: Zofran (Ondansetron) 4 mg Route: IVP; Site: right antecubital; kb3 22:39 Follow up: Response: No adverse reaction kb3 20:15 Drug: NS 0.9% 1000 ml Route: IV; Rate: 1 bolus; Site: right antecubital; kb3 22:40 Follow up: Response: No adverse reaction; IV Status: Completed infusion; IV Intake: kb3 1000ml 22:51 Drug: Zosyn (piperacillin-tazobactam) 3.375 grams Route: IVPB; Infused Over: 60 mins; kb3 Site: right antecubital; 23:20 Follow up: IV Status: Completed infusion; IV Intake: 100ml kb3 23:20 Follow up: Response: No adverse reaction kb3 22:52 Drug: NS 0.9% 1000 ml Route: IV; Rate: 100 ml/hr; Site: right antecubital; kb3 06/22 01:44 Follow up: IV Status: Infusion continued upon transfer; IV Intake: 200ml kb3 06/21 23:18 Drug: Dilaudid (HYDROmorphone) 1 mg Route: IVP; Site: right antecubital; kb3 06/22 00:15 Follow up: Response: No adverse reaction; Pain is decreased kb3 01:43 Follow up: Response: No adverse reaction; Pain is decreased kb3 Medication: 06/21 18:30 VIS not applicable for this client. kb3 Intake: 22:40 IV: 1000ml; Total: 1000ml. kb3 23:20 IV: 100ml; Total: 1100ml. kb3 06/22 01:44 IV: 200ml; Total: 1300ml. kb3 Outcome: 06/21 23:46 ER care complete, transfer ordered by MD. giraldo 06/22 01:42 Transferred to [facility], Transfer form completed. X-rays sent w/ kb3 patient. Condition: stable Instructed on the need for transfer. 01:45 Patient left the ED. kb3 Signatures: Dispatcher [employer] EDMS Alex Downing PA PA cp Herrera, Deanna 3 Emily Page mw2 Sheree Suarez, RN RN kb3 Corrections: (The following items were deleted from the chart) 00:12 06/21 23:37 Connected Alex KNOX with Dr. Hugo from [facility] mw2 mw2
[2022-06-22 02:49] VITALS: TEMP 98
[2022-06-22 03:05] VITALS: BP 142/82; O2SAT 98
--- NOTE | 2022-06-25 08:26 | EKG ---
Test Date: 2022-06-21 Test Time: 19:05:16 [employer]: ILDA MEASUREMENT RESULTS: Intervals: Rate: 68 CO: 142 QRSD: 142 QT: 444 QTc: 472 [place]: P: 69 CO: 142 QRS: -84 T: 71 INTERPRETIVE STATEMENTS: Normal sinus rhythm Right bundle branch block Left anterior fascicular block Bifascicular block Abnormal ECG Compared to ECG 10/25/2021 08:39:56 Left anterior fascicular block now present Bifascicular block now present Left-axis deviation no longer present Electronically Signed On 06-25-22 08:12:58 CDT by George Card
== END 2022-06-22 01:45 | disposition short-term general hospital (02) ==
LOC: ER 18:06
DX: K85.10 Biliary acute pancreatitis without necrosis or infection (principal); K80.50 Calculus of bile duct without cholangitis or cholecystitis without obstruction; F03.90 Unspecified dementia, unspecified severity, without behavioral disturbance, psychotic disturbance, mood disturbance, and anxiety; J44.9 Chronic obstructive pulmonary disease, unspecified; F32.A Depression, unspecified; Z20.822 Contact with and (suspected) exposure to COVID-19
CPT/HCPCS: 96365; 96361; 93005; 87040 ×2; 85025; 80048; 36415; 83735; 85610; 80076; 83605; 84484; 83690; 84145; 83880; 74177; 71045; 96375; 99285; 87811; Q9967; J2543; J1170; J7030 ×2; J2405

== ENCOUNTER 2023-06-11 10:55 | Emergency (ER) | payer OTHER ==
--- OUTSIDE RECORDS SUMMARY | 2023-06-11 10:59 | XMS REPORT | Continuity of Care Document ---
:1955 Author Organization [facility] t Address [address] [place] [address] [address] [place] [address] Care Team Providers Name Role Phone DAREN MARTINEZ Attending Clinician Unavailable VANE SOTOMAYOR Attending Clinician Unavailable PAM SUN Admitting Clinician Unavailable Payers Payer Name Policy Type Policy Number Effective Date Expiration Date S ource MEDICARE PART A [id number] 2019 00:00:00 Problems This patient has no known problems. Allergies, Adverse Reactions, Alerts Allergy Allergy Status Severity Reaction(s) Onset Inactive Treating Comm ents Source Name Type Date Date Clinician NO KNOWN Allergy Active [facility] Medications This patient has no known medications. Vital Signs Vital Name Observation Time Observation Value Comments Source HEIGHT 2022-06-22 03:31:00 185.4 cm WEIGHT 2022-06-22 03:31:00 71.623 kg HEIGHT 2022-06-22 03:31:00 185.4 cm WEIGHT 2022-06-22 03:31:00 71.623 kg Procedures This patient has no known procedures. Encounters Start End Encounter Admission Attending Care Care Encounter Source Date/Time Date/Time Type Type Clinicians Facility Department ID 2022-06-22 2022-06-26 Inpatient ER LUI SOTOMAYOR Surgery [id number] [address] [facility] 03:03:00 13:41:00 VANE Results Test Description Test Time Test Comments Results Result Comments Source TISSUE EXAM 2022-07-03 Surgical Pathology 20:31:16 Report Case: [id number] Authorizing Provider: Forrest Ventura MD Collected: 06/25/2022 06:24 PM Ordering Location: [facility] PERIOPERATIVE Received: 06/26/2022 08:14 AM SERVICES Pathologist: Asuncion Marie MD Specimen: Gallbladder A. GALLBLADDER, CHOLECYSTECTOMY: - CHRONIC CHOLECYSTITIS - CHOLELITHIASIS Signing Pathologist Direct Phone Line: [phone] jey signed by Asuncion Marie MD on 07/03/2022 at 8:31 PMSeashirley Randolph MD concurs with the findings. [id number]. Gallbladder.Received fresh labeled with the patient's name, accession number and "gallbladder" is a 7.2 x 2.4 x 1.8 cm intact gallbladder with a 0.2 cm in length by 0.3 cm in diameter attached cystic duct. The serosa is dusky yellow-green, smooth and hyperemic. Specimen is opened to reveal a mL of yellow bile and a 5.5 x 3.2 x 1.2 cm aggregate of yellow, bosselated calculi. There are no calculi lodged within the cystic duct. The mucosa is mai and trabeculated. The wall measures up to 0.4 cm thick and is edematous at the fundus. Pbx Manager sections are submitted in A1-A2, with the inked cystic duct margin in A1.ABILIO Ray, HT (ASCP)Performed. [facility], Department of Pathology, [address] [place] [id number], [facility], [address] [place] [address], [facility], [facility] of [facility], [address] [place] [id number], PHOSPHORUS 2022-06-26 06:11:09 Test Item Value Reference Range Interpretation Comme nts PHOSPHORUS (BEAKER) (test code = 604) 2.3 mg/dL 2.3-4.7 Luncheonette Operator ID - DIVYA MBASIC METABOLIC [id number] 06:11:08 Test Item Value Reference Range Interpretation Comments SODIUM (BEAKER) 139 meq/L 136-145 (test code = 381) POTASSIUM 3.5 meq/L 3.5-5.1 (BEAKER) (test code = 379) CHLORIDE (BEAKER) 108 meq/L 98-107 H (test code = 382) CO2 (BEAKER) 24 meq/L 22-29 (test code = 355) BLOOD UREA 15 mg/dL 7-21 NITROGEN (BEAKER) (test code = 354) CREATININE 0.73 mg/dL 0.57-1.25 (BEAKER) (test code = 358) GLUCOSE RANDOM 91 mg/dL 70-105 (BEAKER) (test code = 652) CALCIUM (BEAKER) 8.0 mg/dL 8.4-10.2 L (test code = 697) EGFR (BEAKER) 99 Interpretatio n of eGFR (test code = mL/min/1.73 values Stage De scription 1092) sq m Result G1 Mireya l or high >=90 G2 Mildly decreased 60-89 G3a Mildl y to moderately 45-5 9 G3b Moderately to s everely 30-44 G4 Severl y decreased 15-29 G5 Kidney failure <15Reported eGF R is based on the CKD-EPI 2020 equation that d oes not use a race coefficientEsti mated GFR is not as accur ate as Creatinine Judith doni in predicting glom erular filtration rate . Estimated GFR is not appl icable for dialysis patien ts Luncheonette Operator ID - DIVYA [id number] 06:11:08 Test Item Value Reference Range Interpretation Comments MAGNESIUM (BEAKER) (test code = 2.1 mg/dL 1.6-2.6 627) Luncheonette Operator ID - DIVYA MCBC (HEMOGRAM ONLY)2022-06-26 05:13:32 Test Item Value Reference Range Interpretation Comments WHITE BLOOD CELL COUNT (BEAKER) 10.9 K/ L 3.5-10.5 H (test code = 775) RED BLOOD CELL COUNT (BEAKER) 4.08 M/ L 4.63-6.08 L (test code = 761) HEMOGLOBIN (BEAKER) (test code = 12.4 GM/DL 13.7-17.5 L 410) HEMATOCRIT (BEAKER) (test code = 37.1 % 40.1-51.0 L 411) MEAN CORPUSCULAR VOLUME (BEAKER) 90.9 fL 79.0-92.2 (test code = 753) MEAN CORPUSCULAR HEMOGLOBIN 30.4 pg 25.7-32.2 (BEAKER) (test code = 751) MEAN CORPUSCULAR HEMOGLOBIN CONC 33.4 GM/DL 32.3-36.5 (BEAKER) (test code = 752) RED CELL DISTRIBUTION WIDTH 13.4 % 11.6-14.4 (BEAKER) (test code = 412) PLATELET COUNT (BEAKER) (test 152 K/CU MM 150-450 code = 756) MEAN PLATELET VOLUME (BEAKER) 10.4 fL 9.4-12.4 (test code = 754) NUCLEATED RED BLOOD CELLS 0 /100 WBC 0-0 (BEAKER) (test code = 413) COMPREHENSIVE METABOLIC [id number] 05:20:33 Test Item Value Reference Range Interpretation Comments TOTAL PROTEIN 6.2 gm/dL 6.0-8.3 (BEAKER) (test code = 770) ALBUMIN (BEAKER) 3.6 g/dL 3.5-5.0 (test code = 1145) ALKALINE 121 U/L 40-150 PHOSPHATASE (BEAKER) (test code = 346) BILIRUBIN TOTAL 1.3 mg/dL 0.2-1.2 H (BEAKER) (test code = 377) SODIUM (BEAKER) 139 meq/L 136-145 (test code = 381) POTASSIUM (BEAKER) 3.5 meq/L 3.5-5.1 (test code = 379) CHLORIDE (BEAKER) 106 meq/L 98-107 (test code = 382) CO2 (BEAKER) (test 25 meq/L 22-29 code = 355) BLOOD UREA 15 mg/dL 7-21 NITROGEN (BEAKER) (test code = 354) CREATININE 0.94 mg/dL 0.57-1.25 (BEAKER) (test code = 358) GLUCOSE RANDOM 99 mg/dL 70-105 (BEAKER) (test code = 652) CALCIUM (BEAKER) 8.4 mg/dL 8.4-10.2 (test code = 697) AST (SGOT) 16 U/L 5-34 (BEAKER) (test code = 353) ALT (SGPT) 17 U/L 6-55 (BEAKER) (test code = 347) EGFR (BEAKER) 89 Interpretatio n of eGFR (test code = 1092) mL/min/1.[address] age Description sq m Result G1 Mireya l or high >=90 G2 Mildly decreased 60-89 G3a Mildl y to moderately 45-5 9 G3b Moderately to s everely 30-44 G4 Severl y decreased 15-29 G5 Kidney failure <15Reported eGF R is based on the CKD-EPI 2020 equation that d oes not use a race coefficientEsti mated GFR is not as accur ate as Creatinine Judith doni in predicting glom erular filtration rate . Estimated GFR is not appl icable for dialysis patien ts Luncheonette Operator ID - AMY [id number] 05:20:33 Test Item Value Reference Range Interpretation Comments MAGNESIUM (BEAKER) (test code = 2.1 mg/dL 1.6-2.6 627) Luncheonette Operator ID Jonathan REYES LCBC (HEMOGRAM ONLY)2022-06-25 04:01:19 Test Item Value Reference Range Interpretation Comments WHITE BLOOD CELL COUNT (BEAKER) 12.4 K/ L 3.5-10.5 H (test code = 775) RED BLOOD CELL COUNT (BEAKER) 4.03 M/ L 4.63-6.08 L (test code = 761) HEMOGLOBIN (BEAKER) (test code = 12.3 GM/DL 13.7-17.5 L 410) HEMATOCRIT (BEAKER) (test code = 37.2 % 40.1-51.0 L 411) MEAN CORPUSCULAR VOLUME (BEAKER) 92.3 fL 79.0-92.2 H (test code = 753) MEAN CORPUSCULAR HEMOGLOBIN 30.5 pg 25.7-32.2 (BEAKER) (test code = 751) MEAN CORPUSCULAR HEMOGLOBIN CONC 33.1 GM/DL 32.3-36.5 (BEAKER) (test code = 752) RED CELL DISTRIBUTION WIDTH 13.0 % 11.6-14.4 (BEAKER) (test code = 412) PLATELET COUNT (BEAKER) (test 139 K/CU MM 150-450 L code = 756) MEAN PLATELET VOLUME (BEAKER) 10.1 fL 9.4-12.4 (test code = 754) NUCLEATED RED BLOOD CELLS 0 /100 WBC 0-0 (BEAKER) (test code = 413) SARS-COV2/RT-PCR ([facility])2022-06-24 20:09:25 Test Item Value Reference Range Interpretation Comments SARS-COV2/RT-PCR (test code = Negative Negative [id number]) Negative result for this test determines that SARS-CoV-2 RNA was not present in the specimen above the Limit of Detection (LOD). However, Negative results do not preclude SARS-CoV-2 infection and should not be used as the sole basis for treatment or patient management decisions. Negative results must be combined with clinical observations, patient history, and epidemiological information. A false negative result may occur if a specimen is improperly collected, transported, or handled. A false negative result should be considered if patient's recent exposures or clinical presentation indicate that COVID-19 (SARS-CoV-2) is likely and diagnostic tests for other causes of illness are negative. Re-testing should be considered in cases of suspected false negatives.The limit of detection for this assay is 100 copies/mL.This SARS-CoV-2 test is a real-time RT_PCR test intended for the qualitative detection of nucleic acid from SARS-CoV-2 in a nasopharyngeal swab specimen collected from individuals suspected of COVID-19 by their healthcare provider.This test has not been Food and Drug Administration (FDA) cleared or approved. This is a modified version of an approved Emergency Use Authorization (EUA) and is in the process of review by the FDA. Once authorized by the FDA, the issued EUA will be effective until the declaration that circumstances exist justifying the authorization of the emergency use of in vitro diagnostic tests for detection and/or diagnosis of COVID-19 is terminated under Section 564(b)(2) of the Act or the EUA is revoked under Section 564(g) of the Act.Testing was performed using t [employer] SARS-CoV-2 assay.Fact Sheet for Healthcare Providers:https://www.Accolade.leyva/ze/RT SARS-CoV-2 HCP Fact Sheet 51- 030546.pdfFact Sheet for Healthcare Patients:https://www.molecular.leyva/ze/RT SARS-CoV-2 Patient Fact Sheet EN 51-250194H9.pdfCOMPREHENSIVE METABOLIC PANEL 2022-06-24 06:53:30 Test Item Value Reference Range Interpretation Comments TOTAL PROTEIN 6.5 gm/dL 6.0-8.3 (BEAKER) (test code = 770) ALBUMIN (BEAKER) 3.8 g/dL 3.5-5.0 (test code = 1145) ALKALINE 138 U/L 40-150 PHOSPHATASE (BEAKER) (test code = 346) BILIRUBIN TOTAL 1.2 mg/dL 0.2-1.2 (BEAKER) (test code = 377) SODIUM (BEAKER) 138 meq/L 136-145 (test code = 381) POTASSIUM (BEAKER) 3.6 meq/L 3.5-5.1 (test code = 379) CHLORIDE (BEAKER) 107 meq/L 98-107 (test code = 382) CO2 (BEAKER) (test 25 meq/L 22-29 code = 355) BLOOD UREA 9 mg/dL 7-21 NITROGEN (BEAKER) (test code = 354) CREATININE 0.76 mg/dL 0.57-1.25 (BEAKER) (test code = 358) GLUCOSE RANDOM 99 mg/dL 70-105 (BEAKER) (test code = 652) CALCIUM (BEAKER) 8.5 mg/dL 8.4-10.2 (test code = 697) AST (SGOT) 21 U/L 5-34 (BEAKER) (test code = 353) ALT (SGPT) 21 U/L 6-55 (BEAKER) (test code = 347) EGFR (BEAKER) 98 Interpretati on of eGFR (test code = 1092) mL/min/1.[address] age Description sq m Result G1 Mireya l or high >=90 G2 Mildly decreased 60-89 G3a Mildl y to moderately 45-5 9 G3b Moderately to s everely 30-44 G4 Severl y decreased 15-29 G5 Kidney failure <15Reported eGF R is based on the CKD-EPI 2020 equation that d oes not use a race coefficientEsti mated GFR is not as accur ate as Creatinine Judith marion in predicting glom erular filtration rate . Estimated GFR is not appl icable for dialysis patien ts Luncheonette Operator ID - AMY [id number] 06:53:30 Test Item Value Reference Range Interpretation Comments MAGNESIUM (BEAKER) (test code = 2.1 mg/dL 1.6-2.6 627) Luncheonette Operator JOHN REYES LCBC (HEMOGRAM ONLY)2022-06-24 04:55:41 Test Item Value Reference Range Interpretation Comments WHITE BLOOD CELL COUNT (BEAKER) 11.3 K/ L 3.5-10.5 H (test code = 775) RED BLOOD CELL COUNT (BEAKER) 4.26 M/ L 4.63-6.08 L (test code = 761) HEMOGLOBIN (BEAKER) (test code = 12.9 GM/DL 13.7-17.5 L 410) HEMATOCRIT (BEAKER) (test code = 38.3 % 40.1-51.0 L 411) MEAN CORPUSCULAR VOLUME (BEAKER) 89.9 fL 79.0-92.2 (test code = 753) MEAN CORPUSCULAR HEMOGLOBIN 30.3 pg 25.7-32.2 (BEAKER) (test code = 751) MEAN CORPUSCULAR HEMOGLOBIN CONC 33.7 GM/DL 32.3-36.5 (BEAKER) (test code = 752) RED CELL DISTRIBUTION WIDTH 13.2 % 11.6-14.4 (BEAKER) (test code = 412) PLATELET COUNT (BEAKER) (test 143 K/CU MM 150-450 L code = 756) MEAN PLATELET VOLUME (BEAKER) 10.3 fL 9.4-12.4 (test code = 754) NUCLEATED RED BLOOD CELLS 0 /100 WBC 0-0 (BEAKER) (test code = 413) MR, ABDOMEN, [id number] 15:25:00Unlisted Reason for Exam - Click Yes and Enter Reason Below->Yes Unlisted Reason for Exam->Choledocholithiasis suspectedHOAG [facility] BLOOM : 1955 Sex: MFINAL REPORT MRCP (magnetic resonance cholangiopancreatography) HISTORY: Choledocholithiasis suspected Comparison: None Technique: Multiplanar and multisequence MRI images of the abdomen were obtained without contrast. Three- dimensional reconstructed images of the biliary tree are also reviewed. FINDINGS: The common bile duct appears normal in caliber. Common bile duct measures up to 6 mm in caliber. No intrahepatic biliary dilation. No pancreatic ductal dilation. No intrinsic or extrinsic defect is identified within the biliary system. Cholelithiasis, without gallbladder wall thickening or pericholecystic fluid. Unremarkable appearance of the liver, pancreas, spleen, adrenal glands, and kidneys. The visualized bowel loops appear normal in caliber. No free fluid or lymphadenopathy isseen within the abdomen. A 2.3 cm cystic structure at the skin surface of the left flank probably represents an incidental sebaceous cyst. No suspicious osseous lesions. Impression: 1. No evidence of biliary obstruction.2. Cholelithiasis, without definitive findings of acute cholecystitis. Signed: Brendan Kwok [facility] Verified Date/Time: 06/23/2022 15:25:08 Reading Location: [address] Consult Reading Room COMPREHENSIVE METABOLIC [id number] 03:04:17 Test Item Value Reference Range Interpretation Comments TOTAL PROTEIN 6.6 gm/dL 6.0-8.3 (BEAKER) (test code = 770) ALBUMIN (BEAKER) 4.0 g/dL 3.5-5.0 (test code = 1145) ALKALINE 167 U/L 40-150 H PHOSPHATASE (BEAKER) (test code = 346) BILIRUBIN TOTAL 1.0 mg/dL 0.2-1.2 (BEAKER) (test code = 377) SODIUM (BEAKER) 138 meq/L 136-145 (test code = 381) POTASSIUM (BEAKER) 3.7 meq/L 3.5-5.1 (test code = 379) CHLORIDE (BEAKER) 106 meq/L 98-107 (test code = 382) CO2 (BEAKER) (test 25 meq/L 22-29 code = 355) BLOOD UREA 10 mg/dL 7-21 NITROGEN (BEAKER) (test code = 354) CREATININE 0.74 mg/dL 0.57-1.25 (BEAKER) (test code = 358) GLUCOSE RANDOM 105 mg/dL 70-105 (BEAKER) (test code = 652) CALCIUM (BEAKER) 8.4 mg/dL 8.4-10.2 (test code = 697) AST (SGOT) 21 U/L 5-34 (BEAKER) (test code = 353) ALT (SGPT) 25 U/L 6-55 (BEAKER) (test code = 347) EGFR (BEAKER) 99 Interpretatio n of eGFR (test code = 1092) mL/min/1.[address] age Description sq m Result G1 Mireya l or high >=90 G2 Mildly decreased 60-89 G3a Mildl y to moderately 45-5 9 G3b Moderately to s everely 30-44 G4 Severl y decreased 15-29 G5 Kidney failure <15Reported eGF R is based on the CKD-EPI 2020 equation that d oes not use a race coefficientEsti mated GFR is not as accur ate as Creatinine Judith doni in predicting glom erular filtration rate . Estimated GFR is not appl icable for dialysis patien ts Luncheonette Operator ID - AMY [id number] 03:04:17 Test Item Value Reference Range Interpretation Comments MAGNESIUM (BEAKER) (test code = 2.1 mg/dL 1.6-2.6 627) Luncheonette Operator ID - AMY LCBC (HEMOGRAM ONLY)2022-06-23 02:03:47 Test Item Value Reference Range Interpretation Comments WHITE BLOOD CELL COUNT (BEAKER) 11.4 K/ L 3.5-10.5 H (test code = 775) RED BLOOD CELL COUNT (BEAKER) 4.39 M/ L 4.63-6.08 L (test code = 761) HEMOGLOBIN (BEAKER) (test code = 13.8 GM/DL 13.7-17.5 410) HEMATOCRIT (BEAKER) (test code = 40.6 % 40.1-51.0 411) MEAN CORPUSCULAR VOLUME (BEAKER) 92.5 fL 79.0-92.2 H (test code = 753) MEAN CORPUSCULAR HEMOGLOBIN 31.4 pg 25.7-32.2 (BEAKER) (test code = 751) MEAN CORPUSCULAR HEMOGLOBIN CONC 34.0 GM/DL 32.3-36.5 (BEAKER) (test code = 752) RED CELL DISTRIBUTION WIDTH 13.3 % 11.6-14.4 (BEAKER) (test code = 412) PLATELET COUNT (BEAKER) (test 139 K/CU MM 150-450 L code = 756) MEAN PLATELET VOLUME (BEAKER) 9.9 fL 9.4-12.4 (test code = 754) NUCLEATED RED BLOOD CELLS 0 /100 WBC 0-0 (BEAKER) (test code = 413) [id number] 08:08:04 Test Item Value Reference Range Interpretation Comments LIPASE (BEAKER) (test code = 749) > U/L 8-78 H Luncheonette Operator ID - DIVYA [id number] 07:31:26 Test Item Value Reference Range Interpretation Comments TRIGLYCERIDES (BEAKER) (test code = 84 mg/dL 540) TRIGLYCERIDE REFERENCE RANGELow Risk <150Borderline Risk 150-199High Risk 200-499Very High Risk >=500Operator ID - DIVYA MCOMPREHENSIVE METABOLIC PANEL 2022-06-22 07:31:25 Test Item Value Reference Range Interpretation Comments TOTAL PROTEIN 7.1 gm/dL 6.0-8.3 (BEAKER) (test code = 770) ALBUMIN (BEAKER) 4.2 g/dL 3.5-5.0 (test code = 1145) ALKALINE 164 U/L 40-150 H PHOSPHATASE (BEAKER) (test code = 346) BILIRUBIN TOTAL 0.8 mg/dL 0.2-1.2 (BEAKER) (test code = 377) SODIUM (BEAKER) 141 meq/L 136-145 (test code = 381) POTASSIUM (BEAKER) 3.9 meq/L 3.5-5.1 (test code = 379) CHLORIDE (BEAKER) 107 meq/L 98-107 (test code = 382) CO2 (BEAKER) (test 26 meq/L 22-29 code = 355) BLOOD UREA 15 mg/dL 7-21 NITROGEN (BEAKER) (test code = 354) CREATININE 0.86 mg/dL 0.57-1.25 (BEAKER) (test code = 358) GLUCOSE RANDOM 128 mg/dL 70-105 H (BEAKER) (test code = 652) CALCIUM (BEAKER) 8.8 mg/dL 8.4-10.2 (test code = 697) AST (SGOT) 36 U/L 5-34 H (BEAKER) (test code = 353) ALT (SGPT) 41 U/L 6-55 (BEAKER) (test code = 347) EGFR (BEAKER) 95 Interpretati on of eGFR (test code = 1092) mL/min/1.[address] age Description sq m Result G1 Mireya l or high >=90 G2 Mildly decreased 60-89 G3a Mildl y to moderately 45-5 9 G3b Moderately to s everely 30-44 G4 Severl y decreased 15-29 G5 Kidney failure <15Reported eGF R is based on the CKD-EPI 2020 equation that d oes not use a race coefficientEsti mated GFR is not as accur ate as Creatinine Judith doni in predicting glom erular filtration rate . Estimated GFR is not appl icable for dialysis patien ts Luncheonette Operator ID - DIVYA [id number] 07:31:25 Test Item Value Reference Range Interpretation Comments MAGNESIUM (BEAKER) (test code = 2.3 mg/dL 1.6-2.6 627) Luncheonette Operator ID - DIVYA MCBC W/PLT COUNT & AUTO [id number] 06:57:13 Test Item Value Reference Range Interpretation Comments WHITE BLOOD CELL COUNT (BEAKER) 10.2 K/ L 3.5-10.5 (test code = 775) RED BLOOD CELL COUNT (BEAKER) 4.83 M/ L 4.63-6.08 (test code = 761) HEMOGLOBIN (BEAKER) (test code = 14.8 GM/DL 13.7-17.5 410) HEMATOCRIT (BEAKER) (test code = 44.9 % 40.1-51.0 411) MEAN CORPUSCULAR VOLUME (BEAKER) 93.0 fL 79.0-92.2 H (test code = 753) MEAN CORPUSCULAR HEMOGLOBIN 30.6 pg 25.7-32.2 (BEAKER) (test code = 751) MEAN CORPUSCULAR HEMOGLOBIN CONC 33.0 GM/DL 32.3-36.5 (BEAKER) (test code = 752) RED CELL DISTRIBUTION WIDTH 13.3 % 11.6-14.4 (BEAKER) (test code = 412) PLATELET COUNT (BEAKER) (test 160 K/CU MM 150-450 code = 756) MEAN PLATELET VOLUME (BEAKER) 10.3 fL 9.4-12.4 (test code = 754) NUCLEATED RED BLOOD CELLS 0 /100 WBC 0-0 (BEAKER) (test code = 413) NEUTROPHILS RELATIVE PERCENT 64 % (BEAKER) (test code = 429) LYMPHOCYTES RELATIVE PERCENT 32 % (BEAKER) (test code = 430) MONOCYTES RELATIVE PERCENT 3 % (BEAKER) (test code = 431) EOSINOPHILS RELATIVE PERCENT 0 % (BEAKER) (test code = 432) BASOPHILS RELATIVE PERCENT 0 % (BEAKER) (test code = 437) NEUTROPHILS ABSOLUTE COUNT 6.54 K/ L 1.78-5.38 H (BEAKER) (test code = 670) LYMPHOCYTES ABSOLUTE COUNT 3.30 K/ L 1.32-3.57 (BEAKER) (test code = 414) MONOCYTES ABSOLUTE COUNT (BEAKER) 0.30 K/ L 0.30-0.82 (test code = 415) EOSINOPHILS ABSOLUTE COUNT 0.02 K/ L 0.04-0.54 L (BEAKER) (test code = 416) BASOPHILS ABSOLUTE COUNT (BEAKER) 0.03 K/ L 0.01-0.08 (test code = 417) IMMATURE GRANULOCYTES-RELATIVE 0 % 0-1 PERCENT (BEAKER) (test code = 2801) PROTHROMBIN TIME/[id number] 06:56:39 Test Item Value Reference Range Interpretation Comments PROTIME (BEAKER) 14.7 seconds 11.9-14.2 H (test code = 759) INR (BEAKER) (test 1.18 See_Comment [Automat ed message] code = 370) The system [employer] generated this result transmitted ref erence range: <=5.90. The reference range was not used to int erpret this result as normal/abnormal . RECOMMENDED COUMADIN/WARFARIN INR THERAPY RANGESSTANDARD DOSE: 2.0 - 3.0 Includes: PROPHYLAXIS for venous thrombosis, systemic embolization; TREATMENT for venous thrombosis and/or pulmonary embolus.HIGH RISK: Target INR is 2.5-3.5 for patients with mechanical heart valves.
[2023-06-11 11:43] LABS: Potassium 3.6 mEq/L (3.5-5.1)
--- NOTE | 2023-06-11 13:32 | ER ---
Nurse's Notes [facility] Name: Maurice Melendez Age: 68 yrs Sex: Male : 1955 Arrival Date: 06/11/2023 Time: 10:55 Bed 13 Private MD: Diagnosis: Accidental ingestion of medication Presentation: 06/11 11:17 Chief complaint: EMS states: toned out to [facility]. Nurse called EMS due to pt ld1 taking a handful of other residents medications. Pt denies pain. Coronavirus screen: At this time, the client does not indicate any symptoms associated with coronavirus-19. Ebola Screen: No symptoms or risks identified at this time. Initial Sepsis Screen: Does the patient meet any 2 criteria? No. Patient's initial sepsis screen is negative. Does the patient have a suspected source of infection? No. Patient's initial sepsis screen is negative. Risk Assessment: Do you want to hurt yourself or someone else? Patient reports no desire to harm self or others. Onset of symptoms was June 11, 2023. 11:17 Method Of Arrival: EMS: [facility] ld1 11:17 Acuity: DOUG 3 ld1 Triage Assessment: 11:14 General: Appears in no apparent distress. comfortable, Behavior is calm, cooperative, ld1 appropriate for age. Pain: Denies pain. EENT: No signs and/or symptoms were reported regarding the EENT system. Neuro: Level of Consciousness is awake, alert, obeys commands, Oriented to person. Cardiovascular: Capillary refill < 3 seconds Patient's skin is warm and dry. Rhythm is sinus rhythm. Respiratory: Airway is patent Respiratory effort is even, unlabored. GI: Abdomen is flat, non-distended. : No signs and/or symptoms were reported regarding the genitourinary system. Derm: No signs and/or symptoms reported regarding the dermatologic system. Musculoskeletal: No signs and/or symptoms reported regarding the musculoskeletal system. Historical: - Allergies: 11:14 No Known Allergies; ld1 - PMHx: 11:13 abdominal wall abcess; Chronic obstructive lung disease; depressive disorder; MUSCLE ld1 WEAKNESS; gallstone; Dementia; - PSHx: 11:13 abdominal wall abcess removal with drain placement; ld1 - Immunization history:: Adult Immunizations up to date. - Social history:: Smoking status: Patient denies any tobacco usage or history of. Patient/guardian denies using alcohol. - Family history:: not pertinent. - Hospitalizations: : No recent hospitalization is reported. Screenin:19 [facility] ED Fall Risk Assessment (Adult) History of falling in the last 3 months, ld1 including since admission No falls in past 3 months (0 pts). Abuse screen: Denies threats or abuse. Denies injuries from another. Nutritional screening: No deficits noted. Tuberculosis screening: No symptoms or risk factors identified. Assessment: 11:19 Reassessment: See triage assessment. ld1 12:19 Reassessment: Patient appears in no apparent distress at this time. Patient and/or nj1 family updated on plan of care and expected duration. Pain level reassessed. Patient states he is ready to leave. This RN attempts education, patient agrees to get back in bed. Patient denies pain at this time. 12:23 Reassessment: Pt screaming "Nurse, nurse". Upon this RN arrival to room, patient nj1 attempting to get out of bed, states he is ready to go, this RN provides education, patient then states he has to use the restroom. This RN assists patient to restroom. 13:21 Reassessment: Patient appears in no apparent distress at this time. Patient and/or nj1 family updated on plan of care and expected duration. Pain level reassessed. Pt requesting to go to restroom. This RN assists patient out of bed at this time. 13:27 Reassessment: Lunch tray set up at bedside. nj1 Vital Signs: 11:17 BP 144 / 86; Pulse 75; Resp 18; Temp 97.8(O); Pulse Ox 99% on R/A; Weight 77 kg; Height ld1 6 ft. 0 in. ; Pain 0/10; 12:18 BP 157 / 75; Pulse 80; Resp 16; Pulse Ox 100% ; nj1 12:36 BP 132 / 73; Pulse 69; Resp 17; Pulse Ox 100% on R/A; nj1 13:27 BP 129 / 96; Pulse 84; Resp 18; Pulse Ox 100% on R/A; nj1 11:17 Body Mass Index 23.02 (77.00 kg, 182.88 cm) ld1 11:17 Pain Scale: Adult ld1 ED Course: 10:57 Patient arrived in ED. rn 10:57 Ki Frye MD is Attending Physician. rn 11:12 Mireya Weller, RN is Primary Nurse. nj1 11:14 Arm band placed on right wrist. ld1 11:15 Maintain EMS IV. Dressing intact. Good blood return noted. Site clean \\T\\ dry. Gauge \\T\\ nj 1 site: 20G L AC. 11:19 Triage completed. ld1 11:19 No provider procedures requiring assistance completed. ld1 11:19 Patient has correct armband on for positive identification. Placed in gown. Bed in low ld1 position. Call light in reach. Side rails up X2. conveyor monitor on. Pulse ox on. NIBP on. Door closed. Noise minimized. Warm blanket given. 12:19 Provided Education on: fall precautions. nj1 14:10 IV discontinued, intact, bleeding controlled. nj1 Administered Medications: 11:20 Drug: NS 0.9% IV 250 ml {Note: Ok to utilize EMS IV Fluids initiated prior to arrival nj1 by Dr Frye..} Route: IV; Rate: bolus; Site: left antecubital; 11:50 Follow up: Response: No adverse reaction; IV Status: Completed infusion; IV Intake: nj1 250ml Medication: 11:19 VIS not applicable for this client. ld1 Intake: 11:50 IV: 250ml; Total: 250ml. nj1 Outcome: 13:31 Discharge ordered by . rn 14:10 Discharged to longterm. Report called to Nurse Monik nj1 14:10 Condition: stable 14:10 Discharge instructions given to longterm, Instructed on discharge instructions, follow up and referral plans. medication usage, Demonstrated understanding of instructions, follow-up care, medications. 14:11 Patient left the ED. nj1 Signatures: Ki Frye MD MD rn Sims, Lauren, RN RN ld1 Mireya Weller, MIMI LE nj1
--- NOTE | 2023-06-11 13:32 | EDPHYS ---
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 10:59 EMS reports patient with dementia, at correction was requesting immodium, rn accidentally took another patients meds, including multiple BP meds and glimepride, glucose normal per EMS and BP good. Patient has no complaints. . Onset: The symptoms/episode began/occurred 1 hour(s) ago. Severity of symptoms: At their worst the symptoms were very mild in the emergency department the symptoms are unchanged. The patient has not experienced similar symptoms in the past. The patient has not recently seen a physician. Historical: - Allergies: 11:14 No Known Allergies; ld1 - PMHx: 11:13 abdominal wall abcess; Chronic obstructive lung disease; depressive disorder; MUSCLE ld1 WEAKNESS; gallstone; Dementia; - PSHx: 11:13 abdominal wall abcess removal with drain placement; ld1 - Immunization history:: Adult Immunizations up to date. - Social history:: Smoking status: Patient denies any tobacco usage or history of. Patient/guardian denies using alcohol. - Family history:: not pertinent. - Hospitalizations: : No recent hospitalization is reported. ROS: 10:59 Constitutional: Negative for fever, chills, and weight loss, Cardiovascular: Negative rn for chest pain, palpitations, and edema, Respiratory: Negative for shortness of breath, cough, wheezing, and pleuritic chest pain, Abdomen/GI: Negative for abdominal pain, nausea, vomiting, diarrhea, and constipation, MS/Extremity: Negative for injury and deformity, Skin: Negative for injury, rash, and discoloration, Neuro: Negative for headache, weakness, numbness, tingling, and seizure. Exam: 10:59 Constitutional: This is a well developed, well nourished patient who is awake, alert, rn and in no acute distress. Head/Face: Normocephalic, atraumatic. Cardiovascular: Regular rate and rhythm. No pulse deficits. Respiratory: No increased work of breathing, no retractions or nasal flaring. Abdomen/GI: soft, non-tender Skin: Warm, dry MS/ Extremity: Pulses equal, no cyanosis. Neuro: Awake and alert, GCS 15 11:38 ECG was reviewed by the Attending Physician. rn Vital Signs: 11:17 BP 144 / 86; Pulse 75; Resp 18; Temp 97.8(O); Pulse Ox 99% on R/A; Weight 77 kg; Height ld1 6 ft. 0 in. ; Pain 0/10; 12:18 BP 157 / 75; Pulse 80; Resp 16; Pulse Ox 100% ; nj1 12:36 BP 132 / 73; Pulse 69; Resp 17; Pulse Ox 100% on R/A; nj1 13:27 BP 129 / 96; Pulse 84; Resp 18; Pulse Ox 100% on R/A; nj1 11:17 Body Mass Index 23.02 (77.00 kg, 182.88 cm) ld1 11:17 Pain Scale: Adult ld1 MDM: 10:57 Patient medically screened. rn 13:28 Differential Diagnosis accidental ingestion of medication. Data reviewed: vital signs, rn nurses notes, lab test result(s), EKG, and as a result, I will discharge patient. Counseling: I had a detailed discussion with the patient and/or guardian regarding: the historical points, exam findings, and any diagnostic results supporting the discharge/admit diagnosis, lab results, the need for outpatient follow up, to return to the emergency department if symptoms worsen or persist or if there are any questions or concerns that arise at home. Response to treatment: There is no appreciated change of the patient's symptoms at this time, the patient's condition has returned to base line, the patient is now symptom free, and as a result, I will discharge patient. Special discussion: I discussed with the patient/guardian in detail that at this point there is no indication for admission to the hospital. It is understood, however, that if the symptoms persist or worsen the patient needs to return immediately for re-evaluation. ED course: No complaints, normal vitals, eating a meal, observes for a few hours without adverse outcome, will dc back to correction with return precautions. . 06/11 10:58 Order name: Basic Metabolic Panel; Complete Time: 11:43 rn 06/11 11:34 Order name: Glucose, Ancillary Testing; Complete Time: 11:41 EDMS 06/11 10:58 Order name: EKG; Complete Time: 10:58 rn 06/11 12:32 Order name: Diet Heart Healthy; Complete Time: 12:32 em1 06/11 10:58 Order name: IV Start; Complete Time: 11:13 rn 06/11 10:58 Order name: Glucose Level; Complete Time: 11:23 rn 06/11 10:58 Order name: Cardiac monitoring; Complete Time: 11:29 rn 06/11 10:58 Order name: O2 Sat Monitoring; Complete Time: 11:13 rn 06/11 10:58 Order name: EKG - Nurse/Tech; Complete Time: 11:35 rn EC:38 Rate is 74 beats/min. Rhythm is regular. Right axis deviation noted. QRS is positive in rn lead I and negative in lead aVF. MI interval is normal. QRS interval is prolonged. QT interval is normal. No Q waves. T waves are Normal. No ST changes noted. Clinical impression: NSR w/ Non-specific ST/T Changes. Interpreted by me. Reviewed by me. Administered Medications: 11:20 Drug: NS 0.9% IV 250 ml {Note: Ok to utilize EMS IV Fluids initiated prior to arrival nj1 by Dr Frye..} Route: IV; Rate: bolus; Site: left antecubital; 11:50 Follow up: Response: No adverse reaction; IV Status: Completed infusion; IV Intake: nj1 250ml Disposition Summary: 06/11/23 13:31 Discharge Ordered Location: Home rn Problem: new rn Symptoms: have improved rn Condition: Stable rn Diagnosis - Accidental ingestion of medication rn Followup: rn - With: Private Physician - When: As needed - Reason: Recheck today's complaints, Re-evaluation by your physician Discharge Instructions: - Discharge Summary Sheet rn - Nontoxic Ingestion, Adult rn Forms: - Medication Reconciliation Form rn - Thank You Letter rn - Antibiotic element burner - Prescription Opioid Use rn - Patient Portal Instructions rn Signatures: Dispatcher [employer] Ki Varela MD MD rn Sims, Lauren RN RN ld1 Mireya Weller, RN RN nj1
[2023-06-11 14:16] VITALS: TEMP 97.8
[2023-06-11 14:17] VITALS: O2SAT 100
[2023-06-11 14:21] VITALS: BP 129/96
== END 2023-06-11 14:11 | disposition home or self-care (01) ==
LOC: ER 10:55
DX: T50.901A Poisoning by unspecified drugs, medicaments and biological substances, accidental (unintentional), initial encounter (principal); F03.90 Unspecified dementia, unspecified severity, without behavioral disturbance, psychotic disturbance, mood disturbance, and anxiety
CPT/HCPCS: 36415; 80048; 82947; 93005